=== PATIENT | male | born 1965 | race Caucasian/White ===

== ENCOUNTER 2016-12-24 09:41 | Emergency (ER) | payer OTHER ==
[2016-12-24 10:09] VITALS: BP 146/89
[2016-12-24] MEDS ORDERED: Lidocaine 2% Viscous Solution 15 ML Cup PO ONE (11:42)
--- NOTE | 2016-12-24 18:01 | EDM.PDOC ---
Scribed by Nicole Scherer 12/24/16 [id number] for Mello Young MD ED HPI ENT - General Chief Complaint: ENT Problem Stated Complaint: MOUTH INFECTION [id number] Time Seen by Provider: 12/24/16 11:38 Source of Information: Reports: Patient, RN, RN notes reviewed History Limitations: Reports: No limitations - History of Present Illness INITIAL COMMENTS - FREE TEXT/NARRATIVE: Patient complains of infected/abscess tooth x3 days. Timing/Duration: Reports: Getting worse Severity: severe Location: Reports: mouth Quality: Reports: Ache, Throbbing Improves with: Reports: None Worsens with: Reports: None Associated Symptoms: Reports: no other symptoms - Related Data Allergies/ADRs: Allergies Allergy/AdvReac Type Severity Reaction Status Date / Time No Known Allergies Allergy Verified 12/24/16 10:03 Home Meds: Home Meds Insulin Aspart [NovoLOG] 30 unit SQ TID 10/06/13 [History] Clopidogrel [Plavix] 75 mg PO DAILY 04/19/14 [History] Insulin Detemir [Levemir] 75 units SQ BID 04/19/14 [History] Metoprolol Tartrate [Lopressor] 25 mg PO DAILY 04/19/14 [History] Rosuvastatin [Crestor] 20 mg PO DAILY 04/19/14 [History] Lisinopril [Prinivil] 10 mg PO DAILY 12/05/15 [History] metFORMIN HCl [Metformin HCl] 500 mg PO BID 12/05/15 [History] Acetaminophen [Tylenol] 650 mg PO Q6H PRN 12/24/16 [History] Ibuprofen [Motrin] 800 mg PO Q6H PRN 12/24/16 [History] Past Medical History - Past Health History Medical/Surgical History: Denies Medical/Surgical History HEENT History: Reports: None Cardiovascular History: Reports: CAD, Hypertension, Stents Other Cardiovascular History: 4 way bypass, 2013 Respiratory History: Reports: None Gastrointestinal History: Reports: None Genitourinary History: Reports: None Musculoskeletal History: Reports: Other (see below) Other Musculoskeletal History: shoulder pain since October 26, 2015 Neurological History: Reports: Neuropathy, diabetic Psychiatric History: Reports: None Endocrine/Metabolic History: Reports: Diabetes, type II Hematologic History: Reports: None Immunologic History: Reports: None Oncologic (Cancer) History: Reports: None Dermatologic History: Reports: None - Infectious Disease History Infectious Disease History: Reports: Chicken pox - Past Surgical History Head Surgeries/Procedures: Reports: None Social & Family History - Family History Family Medical History: Noncontributory - Tobacco Use Smoking Status *Q: Current Every Day Smoker Years of Tobacco use: 10 Packs/Tins Daily: 1 Used Tobacco, but Quit: No Second Hand Smoke Exposure: Yes - Caffeine Use Caffeine Use: Reports: None - Alcohol Use Days Per Week of Alcohol Use: 0 Number of Drinks Per Day: 6 Total Drinks Per Week: 0 - Recreational Drug Use Recreational Drug Use: No - Living Situation & Occupation Living situation: Reports: with family Occupation: employed ED ROS ENT - Review of Systems Review Of Systems: ROS reveals no pertinent complaints other than HPI. ED EXAM, ENT - Physical Exam Exam: See Below Exam Limited By: No limitations General Appearance: obese Eye Exam: bilateral eye: normal inspection Ears: normal external exam, normal canal, hearing grossly normal, normal TMs Nose: normal inspection, normal mucousa, no blood Mouth/Throat: Other (tooth #11 decay/adjacent maxillary gums with tenderness and flutuance and drainage. Left maxillary face tender without erythema. ) Head: atraumatic, normocephalic Neck: normal inspection, supple, non-tender, full range of motion Respiratory/Chest: no respiratory distress Cardiovascular: normal peripheral pulses, regular rate, rhythm, no edema, no gallop, no JVD, no murmur, no rub Neurological: alert, oriented, CN II-XII intact, normal cognition, normal gait, normal reflexes, no motor/sensory deficits Psychiatric: normal affect, normal mood Skin: Warm, Dry, Intact, Normal color, No rash Course - Vital Signs Last Recorded V/S: Last Vital Signs Temp 36.2 C 12/24/16 10:05 Pulse 101 H 12/24/16 10:05 Resp 20 12/24/16 10:05 BP 146/89 H 12/24/16 10:05 Pulse Ox 98 12/24/16 10:05 - Orders/Labs/Meds Meds: Medications Discontinued Medications Generic Name Dose Route Start Last Admin Trade Name Freq PRN Reason Stop Dose Admin Lidocaine HCl 15 ml 12/24/16 11:42 12/24/16 11:46 Xylocaine 2% Viscous PO 12/24/16 11:43 15 ml ONETIME ONE Administration Departure - Departure Time of Disposition: 11:42 Disposition: Home, Self-Care 01 Condition: good Clinical Impression: Dental abscess Instructions: Dental Abscess, [id number] Referrals: Shahram Girard MD [Primary Care Provider] - Forms: ED Department Discharge Additional Instructions: Clindamycin 300mg. Amoxicillin 500mg. Viscous lidocaine 2%. [place] 5mg/325mg. Follow up with dentist at first available appointment. I have read and agree with the documentation that has been completed regarding this visit. By signing this record, I attest that the documentation was completed in my physical presence and is an accurate record of the encounter.
== END 2016-12-24 11:54 | disposition home or self-care (01) ==
LOC: DL.ED 09:41
DX: K04.7 Periapical abscess without sinus (principal); I25.810 Atherosclerosis of coronary artery bypass graft(s) without angina pectoris; E11.9 Type 2 diabetes mellitus without complications; I10 Essential (primary) hypertension; Z79.4 Long term (current) use of insulin; Z79.84 Long term (current) use of oral hypoglycemic drugs; Z79.899 Other long term (current) drug therapy; F17.210 Nicotine dependence, cigarettes, uncomplicated
CPT/HCPCS: 99282; A9270

== ENCOUNTER 2017-04-09 20:10 | Emergency (ER) | payer OTHER | END 2017-04-09 20:27 | disposition left against medical advice (07) | LOC: DL.ED 20:10 | DX: Z53.21 Procedure and treatment not carried out due to patient leaving prior to being seen by health care provider (principal) ==

== ENCOUNTER 2017-04-10 05:40 | Emergency (ER) | payer OTHER ==
[2017-04-10] MEDS ORDERED: Ondansetron 4 MG/2 ML SDV IV ONE (05:51)
[2017-04-10] MEDS ORDERED: Sodium Chloride 0.9% 1,000 ML IV ONE ×2 (05:51→07:45)
[2017-04-10] MEDS ORDERED: Morphine 2 MG/ML Syringe IVPUSH ONE (05:51)
--- NOTE | 2017-04-10 05:55 | EDM.PDOC ---
<Stephan Medina - Last Filed: 04/10/17 07:30> ED HPI GENERAL MEDICAL PROBLEM - General Chief Complaint: Abdominal Pain Stated Complaint: STOMACH PAINS Time Seen by Provider: 04/10/17 05:53 Source of Information: Reports: Patient History Limitations: Reports: No Limitations - History of Present Illness INITIAL COMMENTS - FREE TEXT/NARRATIVE: 1 week h/o periumb-epiG pain occurring after eating. gives h.o pancreatitis. - Related Data Allergies Allergy/AdvReac Type Severity Reaction Status Date / Time No Known Allergies Allergy Verified 04/10/17 05:52 Home Meds: Home Meds Insulin Aspart [NovoLOG] 30 unit SQ TID 10/06/13 [History] Clopidogrel [Plavix] 75 mg PO DAILY 04/19/14 [History] Insulin Detemir [Levemir] 75 units SQ BID 04/19/14 [History] Metoprolol Tartrate [Lopressor] 25 mg PO DAILY 04/19/14 [History] Rosuvastatin [Crestor] 20 mg PO DAILY 04/19/14 [History] Lisinopril [Prinivil] 10 mg PO DAILY 12/05/15 [History] metFORMIN HCl [Metformin HCl] 500 mg PO BID 12/05/15 [History] Acetaminophen [Tylenol] 650 mg PO Q6H PRN 12/24/16 [History] Ibuprofen [Motrin] 800 mg PO Q6H PRN 12/24/16 [History] Past Medical History - Past Health History Medical/Surgical History: Denies Medical/Surgical History HEENT History: Reports: None Cardiovascular History: Reports: CAD, Hypertension, Stents Other Cardiovascular History: 4 way bypass, 2013 Respiratory History: Reports: None Gastrointestinal History: Reports: None Genitourinary History: Reports: None Musculoskeletal History: Reports: Other (See Below) Other Musculoskeletal History: shoulder pain since October 26, 2015 Neurological History: Reports: Neuropathy, Diabetic Psychiatric History: Reports: None Endocrine/Metabolic History: Reports: Diabetes, Type II Hematologic History: Reports: None Immunologic History: Reports: None Oncologic (Cancer) History: Reports: None Dermatologic History: Reports: None - Infectious Disease History Infectious Disease History: Reports: Chicken Pox - Past Surgical History Head Surgeries/Procedures: Reports: None Cardiovascular Surgical History: Reports: Coronary Artery Bypass Social & Family History - Family History Family Medical History: Noncontributory - Tobacco Use Smoking Status *Q: Current Every Day Smoker Years of Tobacco use: 30 Packs/Tins Daily: 20 Used Tobacco, but Quit: No Second Hand Smoke Exposure: Yes - Caffeine Use Caffeine Use: Reports: Coffee - Alcohol Use Days Per Week of Alcohol Use: 0 Number of Drinks Per Day: 6 Total Drinks Per Week: 0 - Recreational Drug Use Recreational Drug Use: No - Living Situation & Occupation Living situation: Reports: with Family Occupation: Employed ED ROS GENERAL - Review of Systems Review Of Systems: ROS reveals no pertinent complaints other than HPI. ED EXAM, GI/ABD - Physical Exam Exam: See Below Exam Limited By: No Limitations General Appearance: Alert, WD/WN, Mild Distress, Other (discomfort) Ears: Hearing Grossly Normal Throat/Mouth: Normal Voice, No Airway Compromise Head: Atraumatic Neck: Non-Tender, Full Range of Motion Respiratory/Chest: No Respiratory Distress Cardiovascular: Regular Rate, Rhythm GI/Abdominal: Hyperactive Bowel Sounds, Tenderness, Other (periumb-epiG). No: Distention, Guarding, Rebound, Rigidity Neurological: Alert, Oriented, Normal Cognition, Normal Gait, No Motor/Sensory Deficits Psychiatric: Flat Affect Skin Exam: Warm, Dry Lymphatic: No Adenopathy Course - Vital Signs Last Recorded V/S: Last Vital Signs Temp 95.4 F 04/10/17 05:43 Pulse 94 04/10/17 05:43 Resp 20 04/10/17 05:43 BP 165/80 H 04/10/17 05:43 Pulse Ox 99 04/10/17 05:43 - Orders/Labs/Meds Orders: Active Orders 24 hr Category Date Time Status Blood Glucose Check, Bedside [RC] ONETIME Care 04/10/17 07:29 Active Sodium Chloride 0.9% [Normal Saline] 1,000 ml Med 04/10/17 07:45 Active IV .BOLUS Medication Orders Sodium Chloride (Normal Saline) 1,000 mls @ 999 mls/hr IV .BOLUS ONE Stop: 04/10/17 08:45 Last Admin: 04/10/17 07:48 Dose: 999 mls/hr Labs: Laboratory Tests 04/10/17 04/10/17 04/10/17 Range/Units 05:58 05:58 07:40 WBC 6.8 (5.0-10.0) 10^3/uL RBC 5.55 (4.6-6.2) 10^6/uL Hgb 17.0 (14.0-18.0) g/dL Hct 47.6 (40.0-54.0) % MCV 85.8 (80-100) fL MCH 30.6 (27.0-34.0) pg MCHC 35.7 H (33.0-35.0) g/dL Plt Count 181 (150-450) 10^3/uL Neut % (Auto) 68.7 (42.2-75.2) % Lymph % (Auto) 22.2 (20.5-50.1) % [place] % (Auto) 7.2 (2-8) % Eos % (Auto) 1.6 (1.0-3.0) % Baso % (Auto) 0.3 (0.0-1.0) % Sodium 133 L (135-145) mmol/L Potassium 4.1 (3.6-5.0) mmol/L Chloride 98 L (101-111) mmol/L Carbon Dioxide 23.0 (21.0-31.0) mmol/L Anion Gap 16.1 BUN 12 (7-18) mg/dL Creatinine 0.6 (0.6-1.3) mg/dL Est Cr Clr Drug Dosing 161.67 mL/min Estimated GFR (MDRD) > 60 BUN/Creatinine Ratio 20.00 Glucose 431 H* (74-105) mg/dL POC Glucose 302 H (70-105) mg/dl Calcium 9.2 (8.4-10.2) mg/dl Total Bilirubin 0.6 (0.2-1.0) mg/dL AST 19 (10-42) IU/L ALT 26 (10-60) IU/L Alkaline Phosphatase 90 (42-121) IU/L Total Protein 6.8 (6.7-8.2) g/dl Albumin 4.2 (3.2-5.5) g/dl Globulin 2.6 Albumin/Globulin Ratio 1.62 Amylase 40 (28-100) U/L Lipase 16 L (22-51) U/L Urine Color (YELLOW) Urine Appearance (CLEAR) Urine pH (5.0-9.0) Ur Specific [place] (1.005-1.030) Urine Protein (NEGATIVE) Urine Glucose (UA) (NEGATIVE) Urine Ketones (NEGATIVE) Urine Occult Blood (NEGATIVE) Urine Nitrite (NEGATIVE) Urine Bilirubin (NEGATIVE) Urine Urobilinogen (0.2-1.0) mg/dL Ur Leukocyte Esterase (NEGATIVE) Urine RBC /HPF Urine WBC (0-5/HPF) /HPF Ur Epithelial Cells /HPF Urine Bacteria (0-FEW/HPF) /HPF 04/10/17 Range/Units 07:46 WBC (5.0-10.0) 10^3/uL RBC (4.6-6.2) 10^6/uL Hgb (14.0-18.0) g/dL Hct (40.0-54.0) % MCV (80-100) fL MCH (27.0-34.0) pg MCHC (33.0-35.0) g/dL Plt Count (150-450) 10^3/uL Neut % (Auto) (42.2-75.2) % Lymph % (Auto) (20.5-50.1) % [place] % (Auto) (2-8) % Eos % (Auto) (1.0-3.0) % Baso % (Auto) (0.0-1.0) % Sodium (135-145) mmol/L Potassium (3.6-5.0) mmol/L Chloride (101-111) mmol/L Carbon Dioxide (21.0-31.0) mmol/L Anion Gap BUN (7-18) mg/dL Creatinine (0.6-1.3) mg/dL Est Cr Clr Drug Dosing mL/min Estimated GFR (MDRD) BUN/Creatinine Ratio Glucose (74-105) mg/dL POC Glucose (70-105) mg/dl Calcium (8.4-10.2) mg/dl Total Bilirubin (0.2-1.0) mg/dL AST (10-42) IU/L ALT (10-60) IU/L Alkaline Phosphatase (42-121) IU/L Total Protein (6.7-8.2) g/dl Albumin (3.2-5.5) g/dl Globulin Albumin/Globulin Ratio Amylase (28-100) U/L Lipase (22-51) U/L Urine Color Yellow (YELLOW) Urine Appearance Clear (CLEAR) Urine pH 5.5 (5.0-9.0) Ur Specific [place] 1.010 (1.005-1.030) Urine Protein Negative (NEGATIVE) Urine Glucose (UA) 500 H (NEGATIVE) Urine Ketones Trace H (NEGATIVE) Urine Occult Blood Small H (NEGATIVE) Urine Nitrite Negative (NEGATIVE) Urine Bilirubin Negative (NEGATIVE) Urine Urobilinogen 0.2 (0.2-1.0) mg/dL Ur Leukocyte Esterase Negative (NEGATIVE) Urine RBC 0-5 /HPF Urine WBC Not seen (0-5/HPF) /HPF Ur Epithelial Cells Rare /HPF Urine Bacteria Not seen (0-FEW/HPF) /HPF Meds: Medications Generic Name Dose Route Start Last Admin Trade Name Freq PRN Reason Stop Dose Admin Sodium Chloride 1,000 mls @ 999 mls/hr 04/10/17 07:45 04/10/17 07:48 Normal Saline IV 04/10/17 08:45 999 mls/hr .BOLUS ONE Administration Discontinued Medications Generic Name Dose Route Start Last Admin Trade Name Freq PRN Reason Stop Dose Admin Hydromorphone HCl 1 mg 04/10/17 07:29 04/10/17 07:35 Dilaudid IVPUSH 04/10/17 07:30 1 mg ONETIME ONE Administration Sodium Chloride 1,000 mls @ 500 mls/hr 04/10/17 05:51 04/10/17 05:59 Normal Saline IV 04/10/17 07:50 500 mls/hr .BOLUS ONE Administration Insulin Human Regular 5 unit 04/10/17 06:27 04/10/17 06:33 Humulin R IV 04/10/17 06:28 5 units ONETIME ONE Administration Protocol Iopamidol 100 ml 04/10/17 06:24 Isovue-300 (61%) IVPUSH 04/10/17 06:25 ONETIME ONE Iopamidol 75 ml 04/10/17 06:45 04/10/17 06:48 Isovue-300 (61%) IVPUSH 04/10/17 06:46 75 ml ONETIME ONE Administration Iopamidol 50 ml 04/10/17 06:45 04/10/17 06:48 Isovue-300 (61%) IVPUSH 04/10/17 06:46 50 ml ONETIME ONE Administration Morphine Sulfate 2 mg 04/10/17 05:51 04/10/17 06:00 Morphine IVPUSH 04/10/17 05:52 2 mg ONETIME ONE Administration Ondansetron HCl 4 mg 04/10/17 05:51 04/10/17 06:00 Zofran IV 04/10/17 05:52 4 mg ONETIME ONE Administration Departure - Departure Disposition: Home, Self-Care 01 Clinical Impression: Peptic ulcer Hydronephrosis Qualifiers: Hydronephrosis type: unspecified Qualified Code(s): N13.30 - Unspecified hydronephrosis - Discharge Information Instructions: Peptic Ulcer, [id number], Abdominal Pain, Adult, [id number] Forms: ED Department Discharge Additional Instructions: Take the antacid (omeprazole) daily. Follow up in 1-2 weeks at the [facility] to obtain an appointment with the grocery bagger (stomach doctor) to evaluate you for an ulcer. Return for any worsening symptoms. try to not eat anything that will aggravate your symptoms. Try not to take ibuprofen as it may increase risk of bleeding. Take Tylenol for pain instead. If you must take Ibuprofen, limit it to one tablet daily. <Quinton Patricia - Last Filed: 04/10/17 08:33> Course - Radiology Interpretation Free Text/Narrative:: no acute findings on the CT ab/pelvis. Mild hydronephrosis - Re-Assessments/Exams Free Text/Narrative Re-Assessment/Exam: 04/10/17 08:12 Pt states that he feels better. States that he was having pain to his abdomen after eating. Will refer to GI specialist at [facility] for further workup to r/o gastric ulcers. States that he has noticed some darkening of color in his stools, denies blood. Will start omeprazole 20 mg daily and have him follow up in clinic in 1-2 weeks. 04/10/17 08:21 Departure - Departure Time of Disposition: 08:22 Condition: Good
[2017-04-10 06:24] LABS: CHLORIDE,CL 98 mmol/L (101-111); SODIUM,NA 133 mmol/L (135-145)
[2017-04-10] MEDS ORDERED: Iopamidol 612 MG/ML 100 ML Bottle IVPUSH ONE (06:24)
[2017-04-10] MEDS ORDERED: Insulin Regular, Human 100 Units/ML 3 ML Vial IV ONE (06:27)
[2017-04-10] MEDS ORDERED: Iopamidol 612 MG/ML 75 ML Bottle IVPUSH ONE (06:45)
[2017-04-10] MEDS ORDERED: Iopamidol 612 MG/ML 50 ML SDV IVPUSH ONE (06:45)
[2017-04-10] MEDS ORDERED: HYDROmorphone 1 MG/ML Syringe IVPUSH ONE (07:29)
[2017-04-10 08:47] VITALS: BP 142/82
== END 2017-04-10 08:45 | disposition home or self-care (01) ==
LOC: DL.ED 05:40
DX: K27.9 Peptic ulcer, site unspecified, unspecified as acute or chronic, without hemorrhage or perforation (principal); K40.20 Bilateral inguinal hernia, without obstruction or gangrene, not specified as recurrent; N13.30 Unspecified hydronephrosis; K57.30 Diverticulosis of large intestine without perforation or abscess without bleeding; E11.40 Type 2 diabetes mellitus with diabetic neuropathy, unspecified; Z79.4 Long term (current) use of insulin; Z79.84 Long term (current) use of oral hypoglycemic drugs; I25.810 Atherosclerosis of coronary artery bypass graft(s) without angina pectoris; I10 Essential (primary) hypertension; Z95.5 Presence of coronary angioplasty implant and graft; Z79.02 Long term (current) use of antithrombotics/antiplatelets; Z79.899 Other long term (current) drug therapy; F17.210 Nicotine dependence, cigarettes, uncomplicated
CPT/HCPCS: 36415; 74177; 80053; 81001; 82150; 82962; 83690; 85025; 96361; 96374; 96375; 99284; J1170; J2270; J2405; J7030; Q9967

== ENCOUNTER 2017-04-12 08:27 | Emergency (ER) | payer OTHER ==
[2017-04-12] MEDS ORDERED: Sodium Chloride 0.9% 1,000 ML IV ONE (09:06)
[2017-04-12] MEDS ORDERED: Ketorolac 30 MG/ML SDV IVPUSH ONE (09:06)
--- NOTE | 2017-04-12 09:10 | EDM.PDOC ---
ED HPI GENERAL MEDICAL PROBLEM - General Chief Complaint: Abdominal Pain Stated Complaint: LOWER ABDOMEN RT SIDE Time Seen by Provider: 04/12/17 09:07 Source of Information: Reports: Patient History Limitations: Reports: No Limitations - History of Present Illness INITIAL COMMENTS - FREE TEXT/NARRATIVE: Pt states that he was having some pain to his RLQ that radiates to the rigth flank starting a few days ago. Pt was previously seen 2 days ago for epigastric pain after eating. States that he has had diarrhea x 3 this morning. Denies n/ v. No other complaints. Onset: Unknown/Unsure Duration: Getting Worse, Waxing/Waning Location: Reports: Abdomen Quality: Reports: Ache, Sharp Severity: Moderate Improves with: Reports: None Worsens with: Reports: None Treatments OUTPATIENT SERVICES DIRECTOR: Reports: NSAIDS Right Lower Abdomen Pain Score (Numeric/FACES): 8 - Related Data Allergies Allergy/AdvReac Type Severity Reaction Status Date / Time No Known Allergies Allergy Verified 04/12/17 08:34 Home Meds: Home Meds Insulin Aspart [NovoLOG] 30 unit SQ TID 10/06/13 [History] Clopidogrel [Plavix] 75 mg PO DAILY 04/19/14 [History] Insulin Detemir [Levemir] 75 units SQ BID 04/19/14 [History] Metoprolol Tartrate [Lopressor] 25 mg PO DAILY 04/19/14 [History] Rosuvastatin [Crestor] 20 mg PO DAILY 04/19/14 [History] Lisinopril [Prinivil] 10 mg PO DAILY 12/05/15 [History] metFORMIN HCl [Metformin HCl] 500 mg PO BID 12/05/15 [History] Acetaminophen [Tylenol] 650 mg PO Q6H PRN 12/24/16 [History] Ibuprofen [Motrin] 800 mg PO Q6H PRN 12/24/16 [History] Omeprazole 20 mg PO DAILY 04/12/17 [History] Past Medical History - Past Health History Medical/Surgical History: Denies Medical/Surgical History HEENT History: Reports: None Cardiovascular History: Reports: CAD, Hypertension, Stents Other Cardiovascular History: 4 way bypass, 2013 Respiratory History: Reports: Sleep Apnea Gastrointestinal History: Reports: Pancreatitis Genitourinary History: Reports: None Musculoskeletal History: Reports: Other (See Below) Other Musculoskeletal History: shoulder pain since October 26, 2015 Neurological History: Reports: Neuropathy, Diabetic Psychiatric History: Reports: None Endocrine/Metabolic History: Reports: Diabetes, Type II Hematologic History: Reports: None Immunologic History: Reports: None Oncologic (Cancer) History: Reports: None Dermatologic History: Reports: None - Infectious Disease History Infectious Disease History: Reports: Chicken Pox - Past Surgical History Head Surgeries/Procedures: Reports: None Cardiovascular Surgical History: Reports: Coronary Artery Bypass GI Surgical History: Reports: Appendectomy Social & Family History - Family History Family Medical History: Noncontributory - Tobacco Use Smoking Status *Q: Current Every Day Smoker Years of Tobacco use: 20 Packs/Tins Daily: 1 Used Tobacco, but Quit: No Second Hand Smoke Exposure: Yes - Caffeine Use Caffeine Use: Reports: None - Alcohol Use Days Per Week of Alcohol Use: 0 Number of Drinks Per Day: 6 Total Drinks Per Week: 0 - Recreational Drug Use Recreational Drug Use: No - Living Situation & Occupation Living situation: Reports: with Family Occupation: Employed ED ROS GENERAL - Review of Systems Review Of Systems: ROS reveals no pertinent complaints other than HPI. ED EXAM, GI/ABD - Physical Exam Exam: See Below Exam Limited By: No Limitations General Appearance: Alert, WD/WN, No Apparent Distress Respiratory/Chest: No Respiratory Distress, Lungs Clear, Normal Breath Sounds, No Accessory Muscle Use, Chest Non-Tender Cardiovascular: Normal Peripheral Pulses, Regular Rate, Rhythm, No Edema, No Gallop, No JVD, No Murmur, No Rub GI/Abdominal: Normal Bowel Sounds, Soft, No Organomegaly, No Distention, No Abnormal Bruit, No Mass, Tenderness (RLQ), Rebound Rectal (Males) Exam: Normal Rectal Tone, Heme - Stool, Tenderness, Other ( erythema perirectally ) Neurological: Alert, Oriented, CN II-XII Intact, Normal Cognition, Normal Gait, Normal Reflexes, No Motor/Sensory Deficits Course - Vital Signs Last Recorded V/S: Last Vital Signs Temp 96.4 F 04/12/17 08:36 Pulse 97 04/12/17 08:36 Resp 18 04/12/17 08:36 BP 146/83 H 04/12/17 09:45 Pulse Ox 98 04/12/17 08:36 - Orders/Labs/Meds Labs: Laboratory Tests 04/12/17 04/12/17 04/12/17 Range/Units 09:04 09:14 09:14 WBC 8.4 (5.0-10.0) 10^3/uL RBC 5.39 (4.6-6.2) 10^6/uL Hgb 16.4 (14.0-18.0) g/dL Hct 46.2 (40.0-54.0) % MCV 85.7 (80-100) fL MCH 30.4 (27.0-34.0) pg MCHC 35.5 H (33.0-35.0) g/dL Plt Count 190 (150-450) 10^3/uL Neut % (Auto) 72.3 (42.2-75.2) % Lymph % (Auto) 19.3 L (20.5-50.1) % [place] % (Auto) 6.8 (2-8) % Eos % (Auto) 1.0 (1.0-3.0) % Baso % (Auto) 0.6 (0.0-1.0) % Sodium 133 L (135-145) mmol/L Potassium 3.9 (3.6-5.0) mmol/L Chloride 98 L (101-111) mmol/L Carbon Dioxide 23.0 (21.0-31.0) mmol/L Anion Gap 15.9 BUN 12 (7-18) mg/dL Creatinine 0.7 (0.6-1.3) mg/dL Est Cr Clr Drug Dosing 142.68 mL/min Estimated GFR (MDRD) > 60 Glucose 377 H (74-105) mg/dL Calcium 9.2 (8.4-10.2) mg/dl Amylase 27 L (28-100) U/L Lipase 15 L (22-51) U/L Urine Color Yellow (YELLOW) Urine Appearance Clear (CLEAR) Urine pH 5.5 (5.0-9.0) Ur Specific [place] 1.020 (1.005-1.030) Urine Protein 30 H (NEGATIVE) Urine Glucose (UA) 500 H (NEGATIVE) Urine Ketones 15 H (NEGATIVE) Urine Occult Blood Small H (NEGATIVE) Urine Nitrite Negative (NEGATIVE) Urine Bilirubin Negative (NEGATIVE) Urine Urobilinogen 0.2 (0.2-1.0) mg/dL Ur Leukocyte Esterase Negative (NEGATIVE) Urine RBC 0-5 /HPF Urine WBC 0-5 (0-5/HPF) /HPF Ur Epithelial Cells Rare /HPF Urine Bacteria Rare (0-FEW/HPF) /HPF Urine Mucus Few H /LPF Urinalysis Comment Meds: Medications Discontinued Medications Generic Name Dose Route Start Last Admin Trade Name Jake PRN Reason Stop Dose Admin Dicyclomine HCl 20 mg 04/12/17 10:00 04/12/17 10:13 Bentyl IM 04/12/17 10:01 20 mg ONETIME ONE Administration Hydromorphone HCl 1 mg 04/12/17 09:59 04/12/17 10:13 Dilaudid IVPUSH 04/12/17 10:00 1 mg ONETIME ONE Administration Sodium Chloride 1,000 mls @ 999 mls/hr 04/12/17 09:06 04/12/17 09:18 Normal Saline IV 04/12/17 10:06 999 mls/hr .BOLUS ONE Administration Insulin Human Regular 6 unit 04/12/17 09:59 04/12/17 10:12 Humulin R SUBCUT 04/12/17 10:00 6 units ONETIME ONE Administration Protocol Ketorolac Tromethamine 30 mg 04/12/17 09:06 04/12/17 09:18 Toradol IVPUSH 04/12/17 09:07 30 mg ONETIME ONE Administration Ondansetron HCl 4 mg 04/12/17 10:00 04/12/17 10:13 Zofran IV 04/12/17 10:01 4 mg ONETIME ONE Administration - Re-Assessments/Exams Free Text/Narrative Re-Assessment/Exam: 04/12/17 10:39 Pt states that he feels much better. is sitting on the side of the bed, more comfortable in appearance. Encouraged to rest the next few days. Will dc the motrin until visit with GI scheduled for monday. Will give ultram for pain with bentyl for spasms of diarrhea. Departure - Departure Time of Disposition: 10:44 Disposition: Home, Self-Care 01 Condition: Good Clinical Impression: Diarrhea Qualifiers: Diarrhea type: unspecified type Qualified Code(s): R19.7 - Diarrhea, unspecified - Discharge Information Instructions: Diarrhea, Adult, Abdominal Pain, Adult, [id number], Food Choices to Help Relieve Diarrhea, Adult Forms: ED Department Discharge, Return to Work/School Form Additional Instructions: Stop taking the motrin until your appointment on Monday with the stomach doctors. Take bentyl for cramping. Get rest the next few days.Drink plenty of fluids and eat bland foods or the B.R.A.T ( bananas, rice, apples , toast ) diet. Return for worsening symptoms.
[2017-04-12 09:45] VITALS: BP 146/83
[2017-04-12 09:50] LABS: CHLORIDE,CL 98 mmol/L (101-111); SODIUM,NA 133 mmol/L (135-145)
[2017-04-12] MEDS ORDERED: Insulin Regular, Human 100 Units/ML 3 ML Vial SUBCUT ONE (09:59)
[2017-04-12] MEDS ORDERED: HYDROmorphone 1 MG/ML Syringe IVPUSH ONE (09:59)
[2017-04-12] MEDS ORDERED: Dicyclomine 20 MG/2 ML SDV IM ONE (10:00)
[2017-04-12] MEDS ORDERED: Ondansetron 4 MG/2 ML SDV IV ONE (10:00)
== END 2017-04-12 11:04 | disposition home or self-care (01) ==
LOC: DL.ED 08:27
DX: R19.7 Diarrhea, unspecified (principal); I25.10 Atherosclerotic heart disease of native coronary artery without angina pectoris; I10 Essential (primary) hypertension; E11.40 Type 2 diabetes mellitus with diabetic neuropathy, unspecified; F17.210 Nicotine dependence, cigarettes, uncomplicated; Z79.4 Long term (current) use of insulin; Z79.899 Other long term (current) drug therapy; Z90.49 Acquired absence of other specified parts of digestive tract; Z95.1 Presence of aortocoronary bypass graft
CPT/HCPCS: 36415; 80048; 81001; 82150; 82272; 83690; 85025; 96372; 96374; 96375; 99283; J0500; J1170; J1815; J1885; J2405; J7030

== ENCOUNTER 2017-05-09 22:50 | Emergency (ER) | payer OTHER ==
[2017-05-09 22:56] VITALS: BP 154/92
--- NOTE | 2017-05-09 23:43 | EDM.PDOC ---
ED HPI GENERAL MEDICAL PROBLEM - General Chief Complaint: ENT Problem Stated Complaint: INFECTED TOOTH Time Seen by Provider: 05/09/17 23:00 Source of Information: Reports: Patient History Limitations: Reports: No Limitations - History of Present Illness INITIAL COMMENTS - FREE TEXT/NARRATIVE: C/O left upper toothache for past 2 days, Reports attempting to contact dentist for antibiotic, but would not give abx unless scheduled to be seen. Did not schedule appointment as doesnt have dental insurance. Denied fever or chills. Upper outer gum swollen, Hydrocodone not helping. has not tried anything else. Left Upper Gums Pain Score (Numeric/FACES): 8 - Related Data Allergies Allergy/AdvReac Type Severity Reaction Status Date / Time No Known Allergies Allergy Verified 05/09/17 22:56 Home Meds: Home Meds Insulin Aspart [NovoLOG] 30 unit SQ TID 10/06/13 [History] Clopidogrel [Plavix] 75 mg PO DAILY 04/19/14 [History] Insulin Detemir [Levemir] 75 units SQ BID 04/19/14 [History] Metoprolol Tartrate [Lopressor] 25 mg PO DAILY 04/19/14 [History] Rosuvastatin [Crestor] 20 mg PO DAILY 04/19/14 [History] Lisinopril [Prinivil] 10 mg PO DAILY 12/05/15 [History] metFORMIN HCl [Metformin HCl] 500 mg PO BID 12/05/15 [History] Acetaminophen [Tylenol] 650 mg PO Q6H PRN 12/24/16 [History] Omeprazole 20 mg PO DAILY 04/12/17 [History] Past Medical History - Past Health History Medical/Surgical History: Denies Medical/Surgical History HEENT History: Reports: None Cardiovascular History: Reports: CAD, Hypertension Other Cardiovascular History: 4 way bypass, 2013 Respiratory History: Reports: Sleep Apnea Gastrointestinal History: Reports: Pancreatitis Genitourinary History: Reports: None Musculoskeletal History: Reports: Other (See Below) Other Musculoskeletal History: shoulder pain since October 26, 2015 Neurological History: Reports: Neuropathy, Diabetic Psychiatric History: Reports: None Endocrine/Metabolic History: Reports: Diabetes, Type II Hematologic History: Reports: None Immunologic History: Reports: None Oncologic (Cancer) History: Reports: None Dermatologic History: Reports: None - Infectious Disease History Infectious Disease History: Reports: Chicken Pox - Past Surgical History Head Surgeries/Procedures: Reports: None Cardiovascular Surgical History: Reports: Coronary Artery Bypass GI Surgical History: Reports: Appendectomy Social & Family History - Family History Family Medical History: Noncontributory - Tobacco Use Smoking Status *Q: Current Every Day Smoker Years of Tobacco use: 30 Packs/Tins Daily: 1 Used Tobacco, but Quit: No Second Hand Smoke Exposure: Yes - Caffeine Use Caffeine Use: Reports: None - Alcohol Use Days Per Week of Alcohol Use: 0 Number of Drinks Per Day: 6 Total Drinks Per Week: 0 - Recreational Drug Use Recreational Drug Use: No - Living Situation & Occupation Living situation: Reports: with Family Occupation: Employed ED ROS ENT - Review of Systems Review Of Systems: ROS reveals no pertinent complaints other than HPI. ED EXAM, ENT - Physical Exam Exam: See Below Exam Limited By: No Limitations General Appearance: Alert, Mild Distress Eye Exam: Bilateral Eye: EOMI Ears: Normal External Exam, Normal TMs Nose: Normal Inspection Mouth/Throat: Dental Abcess, Dental Pain, Dental Tenderness (left upper 2nd molar, posterior medial decay. generalized poor dentation), Gum Swelling Head: Atraumatic, Normocephalic Neck: Normal Inspection, Supple, Lymphadenopathy (L) (mildpre auricular) Respiratory/Chest: No Respiratory Distress, Lungs Clear Cardiovascular: Regular Rate, Rhythm Neurological: Alert, Oriented, Normal Cognition Psychiatric: Normal Affect Skin: Warm, Dry, Intact, Normal Color Course - Vital Signs Last Recorded V/S: Last Vital Signs Temp 98.1 F 05/09/17 22:53 Pulse 95 05/09/17 22:53 Resp 18 05/09/17 22:53 BP 154/92 H 05/09/17 22:53 Pulse Ox 98 05/09/17 22:53 - Orders/Labs/Meds Meds: Medications Discontinued Medications Generic Name Dose Route Start Last Admin Trade Name Freq PRN Reason Stop Dose Admin Amoxicillin Confirm 05/09/17 23:45 05/09/17 23:54 Amoxil Administered 05/09/17 23:46 Not Given Dose 500 mg .ROUTE .STK-MED ONE Oxycodone/Acetaminophen Confirm 05/09/17 23:44 05/09/17 23:54 Percocet 325-5 Mg Administered 05/09/17 23:45 Not Given Dose 1 tab .ROUTE .STK-MED ONE Departure - Departure Time of Disposition: 23:39 Disposition: Home, Self-Care 01 Condition: Fair Clinical Impression: Pain, dental, Dental caries, Dental abscess - Discharge Information Instructions: Dental Abscess, [id number] Referrals: Shahram Girard MD [Primary Care Provider] - Forms: ED Department Discharge Additional Instructions: Follow up with dentist amoxicillin 500mg one three times daily for one week percocet 5/325 one tablet at bed tonight then resume hydrocodone, may use ibuprofen 600mg no greater than every 8 hours as needed for breakthrough pain, take with food, anbesol as needed
[2017-05-09] MEDS ORDERED: Acetaminophen/oxyCODONE 325-5 MG Tab ONE (23:44)
[2017-05-09] MEDS ORDERED: Acetaminophen/oxyCODONE 325-5 MG Tab PO ONE (23:45)
[2017-05-09] MEDS ORDERED: Amoxicillin 500 MG Cap ONE (23:45)
[2017-05-09] MEDS ORDERED: Amoxicillin 500 MG Cap PO ONE (23:45)
== END 2017-05-09 23:50 | disposition home or self-care (01) ==
LOC: DL.ED 22:50
DX: K04.7 Periapical abscess without sinus (principal); K02.9 Dental caries, unspecified; I25.10 Atherosclerotic heart disease of native coronary artery without angina pectoris; I10 Essential (primary) hypertension; E11.40 Type 2 diabetes mellitus with diabetic neuropathy, unspecified; Z90.49 Acquired absence of other specified parts of digestive tract; Z79.4 Long term (current) use of insulin; Z79.899 Other long term (current) drug therapy; F17.210 Nicotine dependence, cigarettes, uncomplicated; Z95.1 Presence of aortocoronary bypass graft
CPT/HCPCS: 99282; A9270

== ENCOUNTER 2017-05-12 05:21 | Day surgery (SDC) | payer OTHER ==
[2017-05-12] MEDS ORDERED: Dextrose 5%-0.45% NaCl 1,000 ML IV SCH (06:00)
[2017-05-12] MEDS ORDERED: Sodium Chloride 0.9% 10 ML Syringe FLUSH PRN (06:00)
[2017-05-12] MEDS ORDERED: fentaNYL 100 MCG/2 ML SDV ONE (06:13)
[2017-05-12] MEDS ORDERED: Midazolam 1 MG/ML 2 ML SDV ONE (06:13)
[2017-05-12] MEDS ORDERED: fentaNYL 100 MCG/2 ML SDV IV ONE ×3 (06:31→12:08)
[2017-05-12] MEDS ORDERED: Midazolam 1 MG/ML 2 ML SDV IV ONE ×3 (06:32→12:08)
--- NOTE | 2017-05-12 07:06 | OR ---
DATE: 05/12/2017 PROCEDURES: Esophagogastroduodenoscopy and multiple pinch biopsies. INSTRUMENT USED: GIF-H180 Olympus video panendoscope. PREMEDICATIONS: No oral topical anesthesia used. Fentanyl 100 mcg intravenous, Versed 2 mg intravenous. The procedure was done under pulse oximetry, BP recording, and cardiac catheterization technician. INDICATION: The patient with persistent upper abdominal pain unexplained and not responsive to medical measures, on PPI. Esophagogastroduodenoscopy is performed for detection of any active erosive lesions, Lin esophagus and/or malignancy also under consideration, H. pylori status to be determined, endoscopic hemostasis therapy if needed. DESCRIPTION OF PROCEDURE: The scope was passed with ease. Adequate visualization of the esophagus was made from proximal to distal areas. No upper esophageal lesions identified. No distal esophageal stricture. No uphill or downhill esophageal varices. No Cyndie-Killian tear. No evidence of erosive esophagitis by [place] criteria. No esophageal polyp or tumor mass identified. Z-line was seen at around 40 cm distal to the oral verge, configuration consistent with grade 1 by ZAP classification. No proximal gastric varices noted. Gastric fundus examination by retroflexion showed no polypoid lesions. No gastric ulcer, malignant mass, or vascular ectasia identified. Duodenal bulb showed no ulcer. Visualized second part of the duodenum was unremarkable. Multiple pinch biopsies were taken from the gastric antrum and proximal body and sent for PyloriTek test for H. pylori, and if negative in an hour, the tissue is to be sent for histopathology. No bleeding was noted from any of the visualized areas at the completion of examination. Photographs were taken of the duodenal bulb, gastric antrum, fundus, and distal esophagus. IMPRESSION: Normal study. The patient tolerated the procedure well. [facility] /[id number]
[2017-05-12 09:15] VITALS: BP 134/81
== END 2017-05-12 08:43 | disposition home or self-care (01) ==
LOC: DL.ENDO 05:21
PROVIDERS: ATTEND Internal Medicine Gastroenterology
DX: R10.10 Upper abdominal pain, unspecified (principal); I25.10 Atherosclerotic heart disease of native coronary artery without angina pectoris; E11.9 Type 2 diabetes mellitus without complications; E78.5 Hyperlipidemia, unspecified; M96.1 Postlaminectomy syndrome, not elsewhere classified; F17.210 Nicotine dependence, cigarettes, uncomplicated; Z90.49 Acquired absence of other specified parts of digestive tract; G89.4 Chronic pain syndrome; K43.9 Ventral hernia without obstruction or gangrene; E66.09 Other obesity due to excess calories; Z98.890 Other specified postprocedural states; Z95.1 Presence of aortocoronary bypass graft; Z79.02 Long term (current) use of antithrombotics/antiplatelets; Z79.82 Long term (current) use of aspirin; Z79.4 Long term (current) use of insulin; Z79.899 Other long term (current) drug therapy
CPT/HCPCS: 43239; 87077; J2250; J3010; J7042

== ENCOUNTER 2017-08-11 05:57 | Day surgery (SDC) | payer OTHER ==
[~2017-08-11 05:57] MED LIST: Midazolam 1 MG/ML 2 ML SDV ONE; fentaNYL 100 MCG/2 ML SDV ONE
[2017-08-11] MEDS ORDERED: fentaNYL 100 MCG/2 ML SDV IV ONE ×3 (05:58→07:00)
[2017-08-11] MEDS ORDERED: Midazolam 1 MG/ML 2 ML SDV IV ONE ×7 (05:58→07:06)
[2017-08-11] MEDS ORDERED: Dextrose 5%-0.45% NaCl 1,000 ML IV SCH (06:00)
[2017-08-11] MEDS ORDERED: Sodium Chloride 0.9% 10 ML Syringe FLUSH PRN (06:00)
--- NOTE | 2017-08-11 07:39 | OR ---
DATE: 08/11/2017 PROCEDURE: Total colonoscopy. INSTRUMENT USED: CF-H180AL Olympus video colonoscope. PREMEDICATIONS: Fentanyl 100 mcg intravenous, Versed 4 mg intravenous. Nasal O2 cannula. The procedure was done under pulse oximetry, BP recording, and production shift supervisor. INDICATION: The patient with persistent right-sided lower pain, unexplained, not responsive to medical measures. Colonoscopic examination is done for detection of any polypoid lesions and removal, endoscopic hemostasis therapy if needed. DESCRIPTION OF PROCEDURE: Initial rectal exam was unremarkable. Rigid anoscopy was normal. The colonoscope was passed with ease to the ileocecal area, photographs were taken of the normal-appearing cecum, identified by landmarks of appendiceal orifice and double-bulged ileocecal folds. No bleeding was noted from any of the visualized areas at the commencement of the examination. No stricture. No vascular ectasia. No large isolated ulcerations seen. No evidence of diffuse inflammatory bowel disease in the form of friability, contact bleeding, or ulcerations. No polyp or tumor mass identified. Probing the proximal sides of folds and flexures, using adequate distention and clearing of the stool material, withdrawal of the scope was made. Cecum to rectum time over 6 minutes. There was considerable amount of fecal material that had to be aspirated. No bleeding was noted from any of the visualized areas at the completion of examination. IMPRESSION: Normal study. The patient tolerated the procedure well. [facility] /[id number]
[2017-08-11 11:57] VITALS: BP 135/85
== END 2017-08-11 09:20 | disposition home or self-care (01) ==
LOC: DL.ENDO 05:57
PROVIDERS: ATTEND Internal Medicine Gastroenterology
DX: R10.31 Right lower quadrant pain (principal); G89.4 Chronic pain syndrome; I25.10 Atherosclerotic heart disease of native coronary artery without angina pectoris; E66.9 Obesity, unspecified; I10 Essential (primary) hypertension; E11.40 Type 2 diabetes mellitus with diabetic neuropathy, unspecified; G47.30 Sleep apnea, unspecified; Z95.1 Presence of aortocoronary bypass graft; Z98.890 Other specified postprocedural states; Z90.49 Acquired absence of other specified parts of digestive tract
CPT/HCPCS: 45378; J2250; J3010; J7042

== ENCOUNTER 2018-10-26 07:13 | Emergency (ER) | payer OTHER ==
[2018-10-26] MEDS ORDERED: diphenhydrAMINE 50 MG/ML SDV IVPUSH ONE (07:40)
[2018-10-26 07:52] VITALS: BP 122/77
[2018-10-26] MEDS ORDERED: methylPREDNISolone Sodium Succinate 125 MG/2 ML SDV IVPUSH ONE (07:54)
[2018-10-26 08:12] LABS: ANION GAP 16.9; CHLORIDE,CL 94 mmol/L (101-111); SODIUM,NA 130 mmol/L (135-145)
[2018-10-26] MEDS ORDERED: Insulin Regular, Human 100 Units/ML 3 ML Vial SUBCUT ONE (08:15)
--- NOTE | 2018-10-26 08:17 | EDM.PDOC ---
ED HPI GENERAL MEDICAL PROBLEM - General Chief Complaint: Allergic Reaction Stated Complaint: REACTION TO MEDS Time Seen by Provider: 10/26/18 07:20 Source of Information: Reports: Patient, Family, RN, RN Notes Reviewed History Limitations: Reports: No Limitations - History of Present Illness INITIAL COMMENTS - FREE TEXT/NARRATIVE: Pt presents to ER with c/o generalized hives/rash and itching. He states that he has been on Ancef IV x4 weeks, and nothing else is new. Denies any cough, wheezing, shortness of breath, facial swelling, swelling of lips, tongue, mouth , or throat. Onset: Today Duration: Constant Quality: Reports: Other (Denies pain) Severity: Moderate Improves with: Reports: None Worsens with: Reports: None Associated Symptoms: Reports: No Other Symptoms - Related Data Allergies Allergy/AdvReac Type Severity Reaction Status Date / Time No Known Allergies Allergy Verified 09/01/18 02:07 Home Meds: Home Meds Insulin Aspart [NovoLOG] 40 unit SQ TID 10/06/13 [History] Clopidogrel [Plavix] 75 mg PO DAILY 04/19/14 [History] Insulin Detemir [Levemir] 80 units SQ BID 04/19/14 [History] Metoprolol Tartrate [Lopressor] 25 mg PO DAILY 04/19/14 [History] Rosuvastatin [Crestor] 40 mg PO DAILY 04/19/14 [History] Lisinopril [Prinivil] 10 mg PO DAILY 12/05/15 [History] metFORMIN HCl [Metformin HCl] 500 mg PO BID 12/05/15 [History] Gabapentin [Neurontin] 1 tab PO TID 05/11/17 [History] buPROPion [Wellbutrin SR] 1 tab PO DAILY 05/11/17 [History] Aspirin [Ecotrin] 81 mg PO DAILY 08/10/17 [History] Diclofenac Sodium [Voltaren] 75 mg PO BIDMEALS 10/26/18 [History] ceFAZolin Sodium In 0.9 % NaCl [Cefazolin-0.9% NaCl 2 G/10 ml] 2 gm IV Q8HR 09/03 [History] Past Medical History - Past Health History Medical/Surgical History: Denies Medical/Surgical History HEENT History: Reports: None Cardiovascular History: Reports: Bypass, CAD, Hypertension Other Cardiovascular History: 4 way bypass, 2013 Respiratory History: Reports: COPD, Sleep Apnea Gastrointestinal History: Reports: Pancreatitis Other Gastrointestinal History: UMBILICAL HERNIA Genitourinary History: Reports: Chronic Renal Insuffiency Musculoskeletal History: Reports: Other (See Below) Other Musculoskeletal History: shoulder pain since October 26, 2015 Neurological History: Reports: Neuropathy, Diabetic Psychiatric History: Reports: None Endocrine/Metabolic History: Reports: Diabetes, Type II, Obesity/BMI 30+ Hematologic History: Reports: None Immunologic History: Reports: None Oncologic (Cancer) History: Reports: None Dermatologic History: Reports: None - Infectious Disease History Infectious Disease History: Reports: Chicken Pox - Past Surgical History Head Surgeries/Procedures: Reports: None HEENT Surgical History: Reports: None Cardiovascular Surgical History: Reports: Coronary Artery Bypass Respiratory Surgical History: Reports: None GI Surgical History: Reports: Appendectomy, Hernia Repair/Other Male Surgical History: Reports: None Endocrine Surgical History: Reports: None Neurological Surgical History: Reports: None Oncologic Surgical History: Reports: None Dermatological Surgical History: Reports: None Social & Family History - Family History Family Medical History: Noncontributory - Caffeine Use Caffeine Use: Reports: Coffee - Living Situation & Occupation Living situation: Reports: with Family Occupation: Employed ED ROS ALLERGIC REACTION - Review of Systems Review Of Systems: ROS reveals no pertinent complaints other than HPI. ED EXAM GENERAL NO PERIP PULSE - Physical Exam Exam: See Below Exam Limited By: No Limitations General Appearance: Alert, WD/WN, No Apparent Distress, Obese Nose: Normal Inspection Throat/Mouth: Normal Inspection, Normal Lips, Normal Oropharynx, Normal Voice, No Airway Compromise Head: Atraumatic, Normocephalic Neck: Normal Inspection, Supple, Non-Tender, Full Range of Motion Respiratory/Chest: No Respiratory Distress, Lungs Clear, Normal Breath Sounds, No Accessory Muscle Use, Chest Non-Tender Cardiovascular: Regular Rate, Rhythm Extremities: Normal Range of Motion, Non-Tender, Normal Capillary Refill Neurological: Alert, Oriented, CN II-XII Intact, Normal Cognition, Normal Gait, No Motor/Sensory Deficits Psychiatric: Normal Mood Skin Exam: Warm, Dry, Intact, Rash (Generalized erythema without welts) Course - Vital Signs Last Recorded V/S: Last Vital Signs Temp 36.5 C 10/26/18 07:30 Pulse 90 10/26/18 07:30 Resp 18 10/26/18 07:30 BP 122/77 10/26/18 07:30 Pulse Ox 99 10/26/18 07:30 - Orders/Labs/Meds Orders: Active Orders 24 hr Category Date Time Status Blood Glucose Check, Bedside [RC] ONETIME Care 10/26/18 08:16 Active Labs: Laboratory Tests 10/26/18 10/26/18 Range/Units 07:42 07:42 WBC 8.7 (5.0-10.0) 10^3/uL RBC 5.44 (4.6-6.2) 10^6/uL Hgb 16.4 (14.0-18.0) g/dL Hct 45.8 (40.0-54.0) % MCV 84.2 (80-100) fL MCH 30.1 (27.0-34.0) pg MCHC 35.8 H (33.0-35.0) g/dL Plt Count 168 (150-450) 10^3/uL Sodium 130 L (135-145) mmol/L Potassium 3.9 (3.6-5.0) mmol/L Chloride 94 L (101-111) mmol/L Carbon Dioxide 23.0 (21.0-31.0) mmol/L Anion Gap 16.9 BUN 16 (7-18) mg/dL Creatinine 0.8 (0.6-1.3) mg/dL Est Cr Clr Drug Dosing TNP Estimated GFR (MDRD) > 60 BUN/Creatinine Ratio 20.00 Glucose 453 H* (74-105) mg/dL Calcium 8.7 (8.4-10.2) mg/dl Total Bilirubin 0.9 (0.2-1.0) mg/dL AST 18 (10-42) IU/L ALT 15 (10-60) IU/L Alkaline Phosphatase 92 (42-121) IU/L Total Protein 6.7 (6.7-8.2) g/dl Albumin 3.9 (3.2-5.5) g/dl Globulin 2.8 Albumin/Globulin Ratio 1.39 Meds: Medications Discontinued Medications Generic Name Dose Route Start Last Admin Trade Name Freq PRN Reason Stop Dose Admin Diphenhydramine HCl 50 mg 10/26/18 07:40 10/26/18 07:55 Benadryl IVPUSH 10/26/18 07:41 50 mg ONETIME ONE Administration Insulin Human Regular 10 unit 10/26/18 08:15 10/26/18 08:24 Humulin R SUBCUT 10/26/18 08:16 10 units ONETIME ONE Administration Methylprednisolone Sodium Succinate 62.5 mg 10/26/18 07:54 10/26/18 07:58 Solu-Medrol IVPUSH 10/26/18 07:55 62.5 mg NOW ONE Administration Departure - Departure Time of Disposition: 08:38 Disposition: Home, Self-Care 01 Condition: Good Clinical Impression: Allergic reaction Qualifiers: Encounter type: initial encounter Qualified Code(s): T78.40XA - Allergy, unspecified, initial encounter Hyperglycemia due to type 2 diabetes mellitus Qualifiers: Diabetes mellitus terminal worker insulin use: with halfway use Qualified Code(s): E11.65 - Type 2 diabetes mellitus with hyperglycemia - Discharge Information *PRESCRIPTION DRUG MONITORING PROGRAM REVIEWED*: Not Applicable *COPY OF PRESCRIPTION DRUG MONITORING REPORT IN PATIENT LYN: Not Applicable Instructions: Drug Allergy, [id number] Forms: ED Department Discharge Additional Instructions: Take Benadryl 25mg or 50mg if itching or rash returns (follow directions on bottle). Call your doctor today to report the reaction. Return to ER if worse at any time. - My Orders Last 24 Hours: My Active Orders 10/26/18 08:16 Blood Glucose Check, Bedside [RC] ONETIME - Assessment/Plan Last 24 Hours: My Active Orders 10/26/18 08:16 Blood Glucose Check, Bedside [RC] ONETIME
== END 2018-10-26 08:47 | disposition home or self-care (01) ==
LOC: DL.ED 07:13
DX: L27.0 Generalized skin eruption due to drugs and medicaments taken internally (principal); T36.1X5A Adverse effect of cephalosporins and other beta-lactam antibiotics, initial encounter; E11.65 Type 2 diabetes mellitus with hyperglycemia; I25.10 Atherosclerotic heart disease of native coronary artery without angina pectoris; J44.9 Chronic obstructive pulmonary disease, unspecified; I12.9 Hypertensive chronic kidney disease with stage 1 through stage 4 chronic kidney disease, or unspecified chronic kidney disease; E11.22 Type 2 diabetes mellitus with diabetic chronic kidney disease; N18.9 Chronic kidney disease, unspecified; E11.40 Type 2 diabetes mellitus with diabetic neuropathy, unspecified; Z79.4 Long term (current) use of insulin; Z79.899 Other long term (current) drug therapy; Z79.82 Long term (current) use of aspirin; Z95.1 Presence of aortocoronary bypass graft
CPT/HCPCS: 36415; 80053; 85027; 96374; 96375; 99283; J1200; J1815; J2930

== ENCOUNTER 2019-10-09 07:03 | Emergency (ER) | payer OTHER ==
[2019-10-09 07:35] VITALS: BP 131/73; PULSE 84
[2019-10-09] MEDS ORDERED: Tetracaine HCl/PF 0.5% 4 ML Bottle EYELF ONE (07:56)
--- NOTE | 2019-10-09 07:56 | EDM.PDOC ---
ED HPI GENERAL MEDICAL PROBLEM - General Chief Complaint: Eye Problems Stated Complaint: LEFT EYE PROBLEM Time Seen by Provider: 10/09/19 07:55 Source of Information: Reports: Patient, RN, RN Notes Reviewed History Limitations: Reports: No Limitations - History of Present Illness INITIAL COMMENTS - FREE TEXT/NARRATIVE: Pt presents to ER with c/o something in the left eye since Monday evening, maybe fiberglass dust. 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 He states he is able to see, but is very light sensitive. He reports the eye is red and irritated. Pt rates the pain 6/10. He took Ibuprofen 400mg last evening at 1800HRS. Tetanus vaccine was less than 5 yrs ago per pt. Onset Date: 10/07/19 Duration: Constant Location: Reports: Other (Left eye) Quality: Reports: Other (Irritated) Severity: Moderate Improves with: Reports: None Worsens with: Reports: None Associated Symptoms: Reports: No Other Symptoms Left Eye Pain Score (Numeric/FACES): 6 - Related Data Allergies Allergy/AdvReac Type Severity Reaction Status Date / Time No Known Allergies Allergy Verified 10/09/19 07:35 Home Meds: Home Meds Insulin Aspart [NovoLOG] 40 unit SQ TID 10/06/13 [History] Clopidogrel [Plavix] 75 mg PO DAILY 04/19/14 [History] Insulin Detemir [Levemir] 80 units SQ BID 04/19/14 [History] Metoprolol Tartrate [Lopressor] 25 mg PO DAILY 04/19/14 [History] Rosuvastatin [Crestor] 40 mg PO DAILY 04/19/14 [History] Lisinopril [Prinivil] 10 mg PO DAILY 12/05/15 [History] metFORMIN HCl [Metformin HCl] 500 mg PO BID 12/05/15 [History] Aspirin [Ecotrin EC] 81 mg PO DAILY 08/10/17 [History] Past Medical History - Past Health History Medical/Surgical History: Denies Medical/Surgical History HEENT History: Reports: None Cardiovascular History: Reports: Bypass, CAD, Hypertension Other Cardiovascular History: 4 way bypass, 2013 Respiratory History: Reports: COPD, Sleep Apnea Gastrointestinal History: Reports: Pancreatitis Other Gastrointestinal History: UMBILICAL HERNIA Genitourinary History: Reports: Chronic Renal Insuffiency Musculoskeletal History: Reports: Other (See Below) Other Musculoskeletal History: shoulder pain since October 26, 2015 Neurological History: Reports: Neuropathy, Diabetic Psychiatric History: Reports: None Endocrine/Metabolic History: Reports: Diabetes, Type II, Obesity/BMI 30+ Hematologic History: Reports: None Immunologic History: Reports: None Oncologic (Cancer) History: Reports: None Dermatologic History: Reports: None - Infectious Disease History Infectious Disease History: Reports: Chicken Pox - Past Surgical History Head Surgeries/Procedures: Reports: None HEENT Surgical History: Reports: None Cardiovascular Surgical History: Reports: Coronary Artery Bypass Respiratory Surgical History: Reports: None GI Surgical History: Reports: Appendectomy, Hernia Repair/Other Male Surgical History: Reports: None Endocrine Surgical History: Reports: None Neurological Surgical History: Reports: None Oncologic Surgical History: Reports: None Dermatological Surgical History: Reports: None Social & Family History - Family History Family Medical History: Noncontributory - Tobacco Use Smoking Status *Q: Current Every Day Smoker Years of Tobacco use: 30 Packs/Tins Daily: 2 Second Hand Smoke Exposure: No - Caffeine Use Caffeine Use: Reports: Coffee - Recreational Drug Use Recreational Drug Use: No - Living Situation & Occupation Living situation: Reports: with Family Occupation: Employed ED ROS GENERAL - Review of Systems Review Of Systems: Comprehensive ROS is negative, except as noted in HPI. ED EXAM GENERAL W FULL EYE - Physical Exam Exam: See Below Exam Limited By: No Limitations General Appearance: Alert, WD/WN, No Apparent Distress Eye Exam: Right Eye: Normal Inspection, Left Eye: Conjunctival Injection, Corneal Abrasion, Bilateral Eye: EOMI, PERRL Eyelids: Left: Lid Everted for Exam, Bilateral: Normal Appearance Conjunctiva & Sclera: Right: Normal Appearance, Left: Injected Cornea Exam: Left: Corneal Abrasion, Examined with Flourescein Extraocular Movements: Bilateral: Intact Pupils: Normal Accommodation Pupillary Size: Bilateral: 3 mm Anterior Chamber: Left: Normal Appearance Head: Atraumatic, Normocephalic Respiratory/Chest: No Respiratory Distress Neurological: Alert, Oriented, No Motor/Sensory Deficits Psychiatric: Normal Mood Skin Exam: Warm, Dry, Intact ED EYE w/ Add Procedure - Eye Procedure Alcaine Drops Administered: Yes Eye FB Removal: no Removal w/ Cotton Swab, no Removal w/ Needle, no Other Antibiotic Oinment/Drps Admin: Left Eye Progress: No foreign body seen. Course - Vital Signs Last Recorded V/S: Last Vital Signs Temp 97.6 F 10/09/19 07:31 Pulse 84 10/09/19 07:31 Resp 18 10/09/19 07:31 BP 131/73 10/09/19 07:31 Pulse Ox 97 10/09/19 07:31 - Orders/Labs/Meds Meds: Medications Discontinued Medications Generic Name Dose Route Start Last Admin Trade Name Jake PRN Reason Stop Dose Admin Fluorescein Sodium 1 mg 10/09/19 07:58 10/09/19 08:04 Ful-Olga EYELF 10/09/19 07:59 1 mg ONETIME ONE Administration Gentamicin Sulfate 1 ml 10/09/19 07:57 10/09/19 08:04 Garamycin 0.3% Ophth Soln EYELF 10/09/19 07:58 1 ml ONETIME ONE Administration Tetracaine HCl 1 ml 10/09/19 07:56 10/09/19 08:04 Tetracaine 0.5% Steri-Unit Ivet EYELF 10/09/19 07:57 1 ml ONETIME ONE Administration Departure - Departure Time of Disposition: 08:21 Disposition: Home, Self-Care 01 Condition: Good Clinical Impression: Corneal abrasion Qualifiers: Encounter type: initial encounter Laterality: left Qualified Code(s): S05.02XA - Injury of conjunctiva and corneal abrasion without foreign body, left eye, initial encounter - Discharge Information *PRESCRIPTION DRUG MONITORING PROGRAM REVIEWED*: No *COPY OF PRESCRIPTION DRUG MONITORING REPORT IN PATIENT LYN: No Instructions: Corneal Abrasion Forms: ED Department Discharge Additional Instructions: Gentamicin Ophthalmic Solution 0.3% One drop in left eye every four hours for five days. Tetracaine Ophthalmic Solution One drop in left eye every 2 to 4 hours as needed for pain for 24 hours only. Follow up in eye clinic in 2 to 3 days for recheck. Wear sunglasses for 3 days. Sepsis Event Note - Evaluation Sepsis Screening Result: No Definite Risk - Focused Exam Vital Signs: Vital Signs Temp Pulse Resp BP Pulse Ox 10/09/19 07:31 97.6 F 84 18 131/73 97 Date Exam was Performed: 10/09/19 Time Exam was Performed: 08:39
[2019-10-09] MEDS ORDERED: Gentamicin 0.3% Ophth Soln 5 ML Bottle EYELF ONE (07:57)
[2019-10-09] MEDS ORDERED: Fluorescein 1 MG Ophth Strip EYELF ONE (07:58)
== END 2019-10-09 08:32 | disposition home or self-care (01) ==
LOC: DL.ED 07:03
DX: S05.02XA Injury of conjunctiva and corneal abrasion without foreign body, left eye, initial encounter (principal); Z57.2 Occupational exposure to dust; T65.831A Toxic effect of fiberglass, accidental (unintentional), initial encounter; X58.XXXA Exposure to other specified factors, initial encounter; I25.10 Atherosclerotic heart disease of native coronary artery without angina pectoris; I12.9 Hypertensive chronic kidney disease with stage 1 through stage 4 chronic kidney disease, or unspecified chronic kidney disease; N18.9 Chronic kidney disease, unspecified; J44.9 Chronic obstructive pulmonary disease, unspecified; G47.30 Sleep apnea, unspecified; E11.22 Type 2 diabetes mellitus with diabetic chronic kidney disease; E11.40 Type 2 diabetes mellitus with diabetic neuropathy, unspecified; F17.210 Nicotine dependence, cigarettes, uncomplicated; E66.9 Obesity, unspecified; Z68.34 Body mass index [BMI] 34.0-34.9, adult; Z79.82 Long term (current) use of aspirin; Z79.4 Long term (current) use of insulin; Z95.1 Presence of aortocoronary bypass graft; Z79.899 Other long term (current) drug therapy
CPT/HCPCS: 99283; A9270

== ENCOUNTER 2019-11-20 05:43 | Emergency (ER) | payer OTHER ==
[2019-11-20 06:09] VITALS: BP 136/79; PULSE 83
--- NOTE | 2019-11-20 06:10 | EDM.PDOC ---
<Mira Nguyen - Last Filed: 11/20/19 06:10> ED HPI GENERAL MEDICAL PROBLEM - General Chief Complaint: Lower Extremity Injury/Pain Stated Complaint: CORTISONE SHOT IN FOOT, CANT HARDLY WALK Time Seen by Provider: 11/20/19 06:00 Source of Information: Reports: Patient, RN, RN Notes Reviewed History Limitations: Reports: No Limitations - History of Present Illness INITIAL COMMENTS - FREE TEXT/NARRATIVE: Pt to Er with c/o left ankle pain. 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 States he awoke from sleep prior to arrival in severe pain. He states the ankle felt as though it was dislocated, as if a horse had kicked him in the ankle. Patient rates pain 05/25-07/25. Pt states he is a diabetic, uses insulin. States he had the little toe on the right foot removed recently. Patient states he is a smoker. Pt denies fever or chills, swelling, redness to the ankle. Patient does have a history of gout. Onset: Today, Sudden - Related Data Allergies Allergy/AdvReac Type Severity Reaction Status Date / Time No Known Allergies Allergy Verified 11/20/19 06:00 Home Meds: Home Meds Insulin Aspart [NovoLOG] 40 unit SQ TID 10/06/13 [History] Clopidogrel [Plavix] 75 mg PO DAILY 04/19/14 [History] Insulin Detemir [Levemir] 80 units SQ BID 04/19/14 [History] Metoprolol Tartrate [Lopressor] 25 mg PO DAILY 04/19/14 [History] Rosuvastatin [Crestor] 40 mg PO DAILY 04/19/14 [History] Lisinopril [Prinivil] 10 mg PO DAILY 12/05/15 [History] metFORMIN HCl [Metformin HCl] 500 mg PO BID 12/05/15 [History] Aspirin [Ecotrin EC] 81 mg PO DAILY 08/10/17 [History] Past Medical History - Past Health History Medical/Surgical History: Denies Medical/Surgical History HEENT History: Reports: None Cardiovascular History: Reports: Bypass, CAD, Hypertension Other Cardiovascular History: 4 way bypass, 2013 Respiratory History: Reports: COPD, Sleep Apnea Gastrointestinal History: Reports: Pancreatitis Other Gastrointestinal History: UMBILICAL HERNIA Genitourinary History: Reports: Chronic Renal Insuffiency Musculoskeletal History: Reports: Other (See Below) Other Musculoskeletal History: shoulder pain since October 26, 2015 Neurological History: Reports: Neuropathy, Diabetic Psychiatric History: Reports: None Endocrine/Metabolic History: Reports: Diabetes, Type II, Obesity/BMI 30+ Hematologic History: Reports: None Immunologic History: Reports: None Oncologic (Cancer) History: Reports: None Dermatologic History: Reports: None - Infectious Disease History Infectious Disease History: Reports: Chicken Pox - Past Surgical History Head Surgeries/Procedures: Reports: None HEENT Surgical History: Reports: None Cardiovascular Surgical History: Reports: Coronary Artery Bypass Respiratory Surgical History: Reports: None GI Surgical History: Reports: Appendectomy, Hernia Repair/Other Male Surgical History: Reports: None Endocrine Surgical History: Reports: None Neurological Surgical History: Reports: None Oncologic Surgical History: Reports: None Dermatological Surgical History: Reports: None Social & Family History - Family History Family Medical History: Noncontributory - Caffeine Use Caffeine Use: Reports: Coffee - Living Situation & Occupation Living situation: Reports: with Family Occupation: Employed Review of Systems - Review of Systems Review Of Systems: Comprehensive ROS is negative, except as noted in HPI. ED EXAM, GENERAL - Physical Exam Exam: See Below Exam Limited By: No Limitations General Appearance: Alert, WD/WN, Mild Distress Eye Exam: Bilateral Eye: EOMI, Normal Inspection Ears: Normal External Exam, Hearing Grossly Normal Nose: Normal Inspection Throat/Mouth: Normal Inspection, Normal Voice, No Airway Compromise Head: Atraumatic, Normocephalic Neck: Normal Inspection, Supple, Non-Tender, Full Range of Motion Respiratory/Chest: No Respiratory Distress, Decreased Breath Sounds, Crackles ( faint, bases bilaterally) Cardiovascular: Normal Peripheral Pulses, Regular Rate, Rhythm, No Edema, No Gallop, No JVD, No Murmur, No Rub Peripheral Pulses: 2+: Radial (L), Radial (R), Dorsalis Pedis (L) GI/Abdominal: Normal Bowel Sounds, Soft, Non-Tender (Male) Exam: Deferred Rectal (Males) Exam: Deferred Back Exam: Normal Inspection, Full Range of Motion, NT Extremities: Normal Inspection, Normal Range of Motion, No Pedal Edema, Normal Capillary Refill, Leg Pain (left ankle), Limited Range of Motion (Left ankle, tender to touch). No: Joint Swelling, Increased Warmth, Mottled, Pallor, Redness Neurological: Alert, Oriented, CN II-XII Intact, Normal Cognition, Normal Gait, Normal Reflexes, No Motor/Sensory Deficits Psychiatric: Normal Affect, Normal Mood Skin Exam: Warm, Dry, Intact, Normal Color, No Rash Lymphatic: No Adenopathy Course - Vital Signs Last Recorded V/S: Last Vital Signs Temp 96.1 F 11/20/19 06:01 Pulse 83 11/20/19 06:01 Resp 16 11/20/19 06:01 BP 136/79 11/20/19 06:01 Pulse Ox 100 11/20/19 06:01 - Orders/Labs/Meds Orders: Active Orders 24 hr Category Date Time Status C-REACTIVE PROTEIN [CHEM] Stat Lab 11/20/19 06:18 Received DME for Discharge [COMM] Routine Oth 11/20/19 06:59 Ordered Labs: Laboratory Tests 11/20/19 11/20/19 11/20/19 Range/Units 06:18 06:18 06:18 WBC 8.3 (5.0-10.0) 10^3/uL RBC 5.17 (4.6-6.2) 10^6/uL Hgb 15.5 (14.0-18.0) g/dL Hct 44.6 (40.0-54.0) % MCV 86.3 (80-100) fL MCH 30.0 (27.0-34.0) pg MCHC 34.8 (33.0-35.0) g/dL Plt Count 159 (150-450) 10^3/uL Neut % (Auto) 72.4 (42.2-75.2) % Lymph % (Auto) 18.1 L (20.5-50.1) % [place] % (Auto) 7.7 (2-8) % Eos % (Auto) 1.3 (1.0-3.0) % Baso % (Auto) 0.5 (0.0-1.0) % ESR 4 (0-15) mm/hr Sodium 132 L (135-145) mmol/L Potassium 4.2 (3.6-5.0) mmol/L Chloride 98 L (101-111) mmol/L Carbon Dioxide 24.0 (21.0-31.0) mmol/L Anion Gap 14.2 BUN 16 (7-18) mg/dL Creatinine 0.8 (0.6-1.3) mg/dL Est Cr Clr Drug Dosing 122.07 mL/min Estimated GFR (MDRD) > 60 BUN/Creatinine Ratio 20.00 Glucose 417 H* (74-105) mg/dL Uric Acid 4.8 (2.6-7.2) mg/dL Calcium 8.8 (8.4-10.2) mg/dl Total Bilirubin 0.7 (0.2-1.0) mg/dL AST 20 (10-42) IU/L ALT 25 (10-60) IU/L Alkaline Phosphatase 96 (42-121) IU/L Total Protein 6.6 L (6.7-8.2) g/dl Albumin 4.0 (3.2-5.5) g/dl Globulin 2.6 Albumin/Globulin Ratio 1.54 Meds: Medications Discontinued Medications Generic Name Dose Route Start Last Admin Trade Name Freq PRN Reason Stop Dose Admin Hydrocodone Bitart/Acetaminophen 1 tab 11/20/19 06:41 11/20/19 06:45 [place] 325-5 Mg PO 11/20/19 06:42 1 tab ONETIME ONE Administration - Radiology Interpretation Free Text/Narrative:: Left ankle xray: See rad report Departure - Departure Disposition: Home, Self-Care 01 Clinical Impression: Left ankle pain Qualifiers: Chronicity: acute Qualified Code(s): M25.572 - Pain in left ankle and joints of left foot Steroid side effects Qualifiers: Encounter type: initial encounter Qualified Code(s): T38.0X5A - Adverse effect of glucocorticoids and synthetic analogues, initial encounter Hyperglycemia due to type 2 diabetes mellitus Qualifiers: Diabetes mellitus detention insulin use: with detention use Qualified Code(s): E11.65 - Type 2 diabetes mellitus with hyperglycemia; 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 Try heat or ice to see if either help relieve the pain. Follow up in podiatry clinic today with Dr. Stacy Perdue. Call at 8:00AM to inform her of the ankle pain. Sepsis Event Note - Focused Exam Vital Signs: Vital Signs Temp Pulse Resp BP Pulse Ox 11/20/19 06:01 96.1 F 83 16 136/79 100 Date Exam was Performed: 11/20/19 Time Exam was Performed: 06:10 - My Orders Last 24 Hours: My Active Orders 11/20/19 06:59 DME for Discharge [COMM] Routine - Assessment/Plan Last 24 Hours: My Active Orders 11/20/19 06:59 DME for Discharge [COMM] Routine <Mello Young - Last Filed: 11/20/19 07:09> ED HPI GENERAL MEDICAL PROBLEM Left Anterior Ankle Pain Score (Numeric/FACES): 6 Course - Radiology Interpretation Free Text/Narrative:: Left ankle XR: no fractures, see Rad. report. Departure - Departure Time of Disposition: 07:02 Condition: Fair - Discharge Information *PRESCRIPTION DRUG MONITORING PROGRAM REVIEWED*: No *COPY OF PRESCRIPTION DRUG MONITORING REPORT IN PATIENT LYN: No Sepsis Event Note - Focused Exam Date Exam was Performed: 11/20/19 Time Exam was Performed: 07:00
[2019-11-20] MEDS ORDERED: Acetaminophen/HYDROcodone 325-5 MG Tab PO ONE (06:41)
[2019-11-20 06:54] LABS: ANION GAP 14.2; CHLORIDE,CL 98 mmol/L (101-111); SODIUM,NA 132 mmol/L (135-145)
== END 2019-11-20 07:27 | disposition home or self-care (01) ==
LOC: DL.ED 05:43
DX: M25.572 Pain in left ankle and joints of left foot (principal); T38.0X5A Adverse effect of glucocorticoids and synthetic analogues, initial encounter; E11.65 Type 2 diabetes mellitus with hyperglycemia; I10 Essential (primary) hypertension; I25.10 Atherosclerotic heart disease of native coronary artery without angina pectoris; J44.9 Chronic obstructive pulmonary disease, unspecified; E11.9 Type 2 diabetes mellitus without complications; E66.9 Obesity, unspecified; Z79.82 Long term (current) use of aspirin; Z79.02 Long term (current) use of antithrombotics/antiplatelets; Z79.4 Long term (current) use of insulin; Z68.34 Body mass index [BMI] 34.0-34.9, adult
CPT/HCPCS: 36415; 73610; 80053; 84550; 85025; 85651; 86140; 99283; A9270

== ENCOUNTER 2020-03-04 06:02 | Emergency (ER) | payer OTHER ==
[2020-03-04] MEDS ORDERED: Ondansetron 4 MG/2 ML SDV IVPUSH ONE (06:15)
[2020-03-04] MEDS ORDERED: HYDROmorphone 1 MG/ML Syringe IVPUSH ONE (06:15)
[2020-03-04] MEDS ORDERED: Sodium Chloride 0.9% 1,000 ML IV ONE (06:15)
--- NOTE | 2020-03-04 06:41 | EDM.PDOC ---
<Mira Nguyen - Last Filed: 03/04/20 12:37> ED HPI GENERAL MEDICAL PROBLEM - General Stated Complaint: LOWER BACK PAIN Time Seen by Provider: 03/04/20 06:13 - Related Data Allergies Allergy/AdvReac Type Severity Reaction Status Date / Time No Known Allergies Allergy Verified 03/04/20 06:48 Home Meds: Home Meds Insulin Aspart [NovoLOG] 40 unit SQ TID 10/06/13 [History] Clopidogrel [Plavix] 75 mg PO DAILY 04/19/14 [History] Insulin Detemir [Levemir] 80 units SQ BID 04/19/14 [History] Metoprolol Tartrate [Lopressor] 25 mg PO DAILY 04/19/14 [History] Rosuvastatin [Crestor] 40 mg PO DAILY 04/19/14 [History] Lisinopril [Prinivil] 10 mg PO DAILY 12/05/15 [History] metFORMIN HCl [Metformin HCl] 500 mg PO BID 12/05/15 [History] Aspirin [Ecotrin EC] 81 mg PO DAILY 08/10/17 [History] Course - Vital Signs Last Recorded V/S: Last Vital Signs Temp 96.5 F L 03/04/20 06:05 Pulse 86 03/04/20 06:05 Resp 20 03/04/20 06:05 BP 149/82 H 03/04/20 06:05 Pulse Ox 98 03/04/20 06:05 - Orders/Labs/Meds Labs: Laboratory Tests 03/04/20 03/04/20 03/04/20 Range/Units 06:12 06:12 06:12 WBC 7.8 (5.0-10.0) 10^3/uL RBC 5.61 (4.6-6.2) 10^6/uL Hgb 16.6 (14.0-18.0) g/dL Hct 48.4 (40.0-54.0) % MCV 86.3 (80-100) fL MCH 29.6 (27.0-34.0) pg MCHC 34.3 (33.0-35.0) g/dL Plt Count 164 (150-450) 10^3/uL Neut % (Auto) 69.1 (42.2-75.2) % Lymph % (Auto) 23.3 (20.5-50.1) % [place] % (Auto) 5.8 (2-8) % Eos % (Auto) 1.5 (1.0-3.0) % Baso % (Auto) 0.3 (0.0-1.0) % Sodium 135 L (136-145) mmol/L Potassium 4.4 (3.5-5.1) mmol/L Chloride 97 L (98-107) mmol/L Carbon Dioxide 28 (21-32) mmol/L Anion Gap 14.4 H (7-13) mEq/L BUN 24 H (7-18) mg/dL Creatinine 1.10 (0.70-1.30) mg/dL Est Cr Clr Drug Dosing 87.77 mL/min Estimated GFR (MDRD) > 60 BUN/Creatinine Ratio 21.8 (No establ ref range) Glucose 398 H (74-99) mg/dL Lactic Acid (0.4-2.0) mmol/L Calcium 9.0 (8.5-10.1) mg/dL Total Bilirubin 0.5 (0.2-1.0) mg/dL AST 15 (15-37) U/L ALT 33 (16-63) U/L Alkaline Phosphatase 102 (46-116) U/L Total Protein 7.0 (6.4-8.2) g/dL Albumin 3.6 (3.4-5.0) g/dL Globulin 3.4 Albumin/Globulin Ratio 1.1 Urine Color Yellow (YELLOW) Urine Appearance Clear (CLEAR) Urine pH 6.0 (5.0-9.0) Ur Specific [place] 1.020 (1.005-1.030) Urine Protein 30 H (NEGATIVE) Urine Glucose (UA) 500 H (NEGATIVE) Urine Ketones Negative (NEGATIVE) Urine Occult Blood Small H (NEGATIVE) Urine Nitrite Negative (NEGATIVE) Urine Bilirubin Negative (NEGATIVE) Urine Urobilinogen 0.2 (0.2-1.0) mg/dL Ur Leukocyte Esterase Negative (NEGATIVE) Urine RBC 5-10 H /HPF Urine WBC Not seen (0-5/HPF) /HPF Ur Epithelial Cells Rare (NOT SEEN) /HPF Urine Bacteria Not seen (0-FEW/HPF) /HPF Urine Mucus Not seen (NOT SEEN) /LPF /20/20 Range/Units 06:12 WBC (5.0-10.0) 10^3/uL RBC (4.6-6.2) 10^6/uL Hgb (14.0-18.0) g/dL Hct (40.0-54.0) % MCV (80-100) fL MCH (27.0-34.0) pg MCHC (33.0-35.0) g/dL Plt Count (150-450) 10^3/uL Neut % (Auto) (42.2-75.2) % Lymph % (Auto) (20.5-50.1) % [place] % (Auto) (2-8) % Eos % (Auto) (1.0-3.0) % Baso % (Auto) (0.0-1.0) % Sodium (136-145) mmol/L Potassium (3.5-5.1) mmol/L Chloride (98-107) mmol/L Carbon Dioxide (21-32) mmol/L Anion Gap (7-13) mEq/L BUN (7-18) mg/dL Creatinine (0.70-1.30) mg/dL Est Cr Clr Drug Dosing mL/min Estimated GFR (MDRD) BUN/Creatinine Ratio (No establ ref range) Glucose (74-99) mg/dL Lactic Acid 1.9 (0.4-2.0) mmol/L Calcium (8.5-10.1) mg/dL Total Bilirubin (0.2-1.0) mg/dL AST (15-37) U/L ALT (16-63) U/L Alkaline Phosphatase (46-116) U/L Total Protein (6.4-8.2) g/dL Albumin (3.4-5.0) g/dL Globulin Albumin/Globulin Ratio Urine Color (YELLOW) Urine Appearance (CLEAR) Urine pH (5.0-9.0) Ur Specific [place] (1.005-1.030) Urine Protein (NEGATIVE) Urine Glucose (UA) (NEGATIVE) Urine Ketones (NEGATIVE) Urine Occult Blood (NEGATIVE) Urine Nitrite (NEGATIVE) Urine Bilirubin (NEGATIVE) Urine Urobilinogen (0.2-1.0) mg/dL Ur Leukocyte Esterase (NEGATIVE) Urine RBC /HPF Urine WBC (0-5/HPF) /HPF Ur Epithelial Cells (NOT SEEN) /HPF Urine Bacteria (0-FEW/HPF) /HPF Urine Mucus (NOT SEEN) /LPF Meds: Medications Discontinued Medications Generic Name Dose Route Start Last Admin Trade Name Freq PRN Reason Stop Dose Admin Hydromorphone HCl 1 mg 03/04/20 06:15 03/04/20 06:30 Dilaudid IVPUSH 03/04/20 06:16 1 mg ONETIME ONE Administration Sodium Chloride 1,000 mls @ 500 mls/hr 03/04/20 06:15 03/04/20 06:31 Normal Saline IV 03/04/20 08:14 500 mls/hr .BOLUS ONE Administration Ondansetron HCl 4 mg 03/04/20 06:15 03/04/20 06:28 Zofran IVPUSH 03/04/20 06:16 4 mg ONETIME ONE Administration - Radiology Interpretation Free Text/Narrative:: CT Abdomen/Pelvis wo contrast: FINDINGS: Limitations: Evaluation is somewhat limited by lack of IV contrast. Lungs: The visualized lung bases demonstrate minor dependent atelectasis. Liver: Grossly unremarkable. Gallbladder and bile ducts: No gallstones are evident, but ultrasound would be more sensitive. No gross biliary ductal dilatation. Pancreas: Grossly unremarkable. Spleen: Grossly unremarkable. Adrenals: Grossly unremarkable. Kidneys and ureters: Grossly unremarkable. No hydronephrosis or renal or ureteral calculus. Stomach and bowel: The unopacified small bowel is not significantly distended to suggest obstruction. There is again mild descending and sigmoid colonic diverticulosis without evidence for diverticulitis. The large bowel is otherwise grossly unremarkable in appearance. Appendix: There are again operative changes of appendectomy. Intraperitoneal space: No free air or significant free fluid. Vasculature: Coronary artery calcifications are again present. The abdominal aorta is nonaneurysmal. Atherosclerotic vascular calcifications are again present. Lymph nodes: No gross pathologic lymphadenopathy. Bladder: Grossly unremarkable. Reproductive: The prostate is again large, measuring 5.2 x 4.8 cm. Bones/joints: Degenerative changes again involve the spine, sacroiliac joints and hips. Soft tissues: There are again small fat containing bilateral inguinal hernias. IMPRESSION: 1. No hydronephrosis, renal or ureteral calculus or other gross acute abnormality identified. 2. Mild left-sided colonic diverticulosis without evidence for diverticulitis, as on 04/10/17. 3. Persistent prostatomegaly. 4. Similar small fat containing bilateral inguinal hernias. COMMENTS: Depending on suspected etiology of symptoms, consider a targeted ultrasound or contrast enhanced exam. Thank you for allowing us to participate in the care of your patient. Dictated and Authenticated by: Keny Hutchins MD 03/04/2020 7:30 AM Central Time ([place] & [place]) See rad report Departure - Departure Time of Disposition: 07:55 Disposition: Home, Self-Care 01 Condition: Fair Clinical Impression: Right flank pain, Diverticulosis Hyperglycemia due to type 2 diabetes mellitus Qualifiers: Diabetes mellitus mcc insulin use: with mcc use Qualified Code(s): E11.65 - Type 2 diabetes mellitus with hyperglycemia - Discharge Information *PRESCRIPTION DRUG MONITORING PROGRAM REVIEWED*: No *COPY OF PRESCRIPTION DRUG MONITORING REPORT IN PATIENT LYN: No Instructions: Hyperglycemia, [id number], Flank Pain, Adult, [id number] Referrals: Shahram Girard MD [Primary Care Provider] - Forms: ED Department Discharge Additional Instructions: Drink plenty of water Follow up with your primary care facility if no improvement Take medications as prescribed May use Tylenol as directed for pain Sepsis Event Note - Focused Exam Date Exam was Performed: 03/04/20 Time Exam was Performed: 12:37 <Claudette Kimball - Last Filed: 03/05/20 05:56> ED HPI GENERAL MEDICAL PROBLEM - General Source of Information: Reports: Patient, RN History Limitations: Reports: No Limitations - History of Present Illness INITIAL COMMENTS - FREE TEXT/NARRATIVE: ED with c/o right lower back pain for 1.5 weeks. In clinic yesterday. Blood in urine. Pain not improving. nauseated. No fever or chills. No injury. Onset of pain one week Right Flank Pain Score (Numeric/FACES): 3 Past Medical History - Past Health History Medical/Surgical History: Denies Medical/Surgical History HEENT History: Reports: None Cardiovascular History: Reports: Bypass, CAD, Hypertension Other Cardiovascular History: 4 way bypass, 2013 Respiratory History: Reports: COPD, Sleep Apnea Gastrointestinal History: Reports: Pancreatitis Other Gastrointestinal History: UMBILICAL HERNIA Genitourinary History: Reports: Chronic Renal Insuffiency Musculoskeletal History: Reports: Other (See Below) Other Musculoskeletal History: shoulder pain since October 26, 2015 Neurological History: Reports: Neuropathy, Diabetic Psychiatric History: Reports: None Endocrine/Metabolic History: Reports: Diabetes, Type II, Obesity/BMI 30+ Hematologic History: Reports: None Immunologic History: Reports: None Oncologic (Cancer) History: Reports: None Dermatologic History: Reports: None - Infectious Disease History Infectious Disease History: Reports: Chicken Pox - Past Surgical History Head Surgeries/Procedures: Reports: None HEENT Surgical History: Reports: None Cardiovascular Surgical History: Reports: Coronary Artery Bypass Respiratory Surgical History: Reports: None GI Surgical History: Reports: Appendectomy, Hernia Repair/Other Male Surgical History: Reports: None Endocrine Surgical History: Reports: None Neurological Surgical History: Reports: None Oncologic Surgical History: Reports: None Dermatological Surgical History: Reports: None Social & Family History - Family History Family Medical History: Noncontributory - Caffeine Use Caffeine Use: Reports: Coffee - Living Situation & Occupation Living situation: Reports: with Family Occupation: Employed ED ROS GENERAL - Review of Systems Review Of Systems: Comprehensive ROS is negative, except as noted in HPI. ED EXAM,LOWER BACK PAIN/INJURY - Physical Exam Exam: See Below Exam Limited By: No Limitations General Appearance: Alert, Mild Distress, Obese Eye Exam: Bilateral Eye: PERRL Ears: Normal External Exam, Hearing Grossly Normal Nose: Normal Inspection Throat/Mouth: Normal Inspection Head: Atraumatic, Normocephalic Neck: Normal Inspection Respiratory/Chest: No Respiratory Distress, Lungs Clear, Normal Breath Sounds Cardiovascular: Normal Peripheral Pulses, Regular Rate, Rhythm, No Edema GI/Abdominal: Normal Bowel Sounds, Soft, Non-Tender. No: Distended, Guarding, Rigid, Rebound, Tender Back Exam: CVA Tenderness (R), Paraspinal Tenderness. No: Decreased Range of Motion, Vertebral Tenderness Extremities: Normal Inspection Neurological: Alert, Oriented x 3 Psychiatric: Normal Affect, Normal Mood Skin Exam: Warm, Dry, Intact, Normal Color Course - Vital Signs Last Recorded V/S: Last Vital Signs Temp 96.5 F L 03/04/20 06:05 Pulse 86 03/04/20 06:05 Resp 20 03/04/20 06:05 BP 149/82 H 03/04/20 06:05 Pulse Ox 98 03/04/20 06:05 - Orders/Labs/Meds Labs: Laboratory Tests 03/04/20 03/04/20 03/04/20 Range/Units 06:12 06:12 06:12 WBC 7.8 (5.0-10.0) 10^3/uL RBC 5.61 (4.6-6.2) 10^6/uL Hgb 16.6 (14.0-18.0) g/dL Hct 48.4 (40.0-54.0) % MCV 86.3 (80-100) fL MCH 29.6 (27.0-34.0) pg MCHC 34.3 (33.0-35.0) g/dL Plt Count 164 (150-450) 10^3/uL Neut % (Auto) 69.1 (42.2-75.2) % Lymph % (Auto) 23.3 (20.5-50.1) % [place] % (Auto) 5.8 (2-8) % Eos % (Auto) 1.5 (1.0-3.0) % Baso % (Auto) 0.3 (0.0-1.0) % Sodium 135 L (136-145) mmol/L Potassium 4.4 (3.5-5.1) mmol/L Chloride 97 L (98-107) mmol/L Carbon Dioxide 28 (21-32) mmol/L Anion Gap 14.4 H (7-13) mEq/L BUN 24 H (7-18) mg/dL Creatinine 1.10 (0.70-1.30) mg/dL Est Cr Clr Drug Dosing 87.77 mL/min Estimated GFR (MDRD) > 60 BUN/Creatinine Ratio 21.8 (No establ ref range) Glucose 398 H (74-99) mg/dL Lactic Acid (0.4-2.0) mmol/L Calcium 9.0 (8.5-10.1) mg/dL Total Bilirubin 0.5 (0.2-1.0) mg/dL AST 15 (15-37) U/L ALT 33 (16-63) U/L Alkaline Phosphatase 102 (46-116) U/L Total Protein 7.0 (6.4-8.2) g/dL Albumin 3.6 (3.4-5.0) g/dL Globulin 3.4 Albumin/Globulin Ratio 1.1 Urine Color Yellow (YELLOW) Urine Appearance Clear (CLEAR) Urine pH 6.0 (5.0-9.0) Ur Specific [place] 1.020 (1.005-1.030) Urine Protein 30 H (NEGATIVE) Urine Glucose (UA) 500 H (NEGATIVE) Urine Ketones Negative (NEGATIVE) Urine Occult Blood Small H (NEGATIVE) Urine Nitrite Negative (NEGATIVE) Urine Bilirubin Negative (NEGATIVE) Urine Urobilinogen 0.2 (0.2-1.0) mg/dL Ur Leukocyte Esterase Negative (NEGATIVE) Urine RBC 5-10 H /HPF Urine WBC Not seen (0-5/HPF) /HPF Ur Epithelial Cells Rare (NOT SEEN) /HPF Urine Bacteria Not seen (0-FEW/HPF) /HPF Urine Mucus Not seen (NOT SEEN) /LPF 03/04/20 Range/Units 06:12 WBC (5.0-10.0) 10^3/uL RBC (4.6-6.2) 10^6/uL Hgb (14.0-18.0) g/dL Hct (40.0-54.0) % MCV (80-100) fL MCH (27.0-34.0) pg MCHC (33.0-35.0) g/dL Plt Count (150-450) 10^3/uL Neut % (Auto) (42.2-75.2) % Lymph % (Auto) (20.5-50.1) % [place] % (Auto) (2-8) % Eos % (Auto) (1.0-3.0) % Baso % (Auto) (0.0-1.0) % Sodium (136-145) mmol/L Potassium (3.5-5.1) mmol/L Chloride (98-107) mmol/L Carbon Dioxide (21-32) mmol/L Anion Gap (7-13) mEq/L BUN (7-18) mg/dL Creatinine (0.70-1.30) mg/dL Est Cr Clr Drug Dosing mL/min Estimated GFR (MDRD) BUN/Creatinine Ratio (No establ ref range) Glucose (74-99) mg/dL Lactic Acid 1.9 (0.4-2.0) mmol/L Calcium (8.5-10.1) mg/dL Total Bilirubin (0.2-1.0) mg/dL AST (15-37) U/L ALT (16-63) U/L Alkaline Phosphatase (46-116) U/L Total Protein (6.4-8.2) g/dL Albumin (3.4-5.0) g/dL Globulin Albumin/Globulin Ratio Urine Color (YELLOW) Urine Appearance (CLEAR) Urine pH (5.0-9.0) Ur Specific [place] (1.005-1.030) Urine Protein (NEGATIVE) Urine Glucose (UA) (NEGATIVE) Urine Ketones (NEGATIVE) Urine Occult Blood (NEGATIVE) Urine Nitrite (NEGATIVE) Urine Bilirubin (NEGATIVE) Urine Urobilinogen (0.2-1.0) mg/dL Ur Leukocyte Esterase (NEGATIVE) Urine RBC /HPF Urine WBC (0-5/HPF) /HPF Ur Epithelial Cells (NOT SEEN) /HPF Urine Bacteria (0-FEW/HPF) /HPF Urine Mucus (NOT SEEN) /LPF Meds: Medications Discontinued Medications Generic Name Dose Route Start Last Admin Trade Name Freq PRN Reason Stop Dose Admin Hydromorphone HCl 1 mg 03/04/20 06:15 03/04/20 06:30 Dilaudid IVPUSH 03/04/20 06:16 1 mg ONETIME ONE Administration Sodium Chloride 1,000 mls @ 500 mls/hr 03/04/20 06:15 03/04/20 06:31 Normal Saline IV 03/04/20 08:14 500 mls/hr .BOLUS ONE Administration Ondansetron HCl 4 mg 03/04/20 06:15 03/04/20 06:28 Zofran IVPUSH 03/04/20 06:16 4 mg ONETIME ONE Administration - Re-Assessments/Exams Free Text/Narrative Re-Assessment/Exam: 03/04/20 06:41 Care transfer to Mira Nguyen 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 Sepsis Event Note - Focused Exam Date Exam was Performed: 03/05/20 Time Exam was Performed: 05:54
[2020-03-04 06:46] LABS: ANION GAP 14.4 mEq/L (7-13); CHLORIDE,CL 97 mmol/L (98-107); SODIUM,NA 135 mmol/L (136-145)
[2020-03-04 06:48] VITALS: BP 149/82; PULSE 86
== END 2020-03-04 08:38 | disposition home or self-care (01) ==
LOC: DL.ED 06:02
DX: K57.30 Diverticulosis of large intestine without perforation or abscess without bleeding (principal); E11.65 Type 2 diabetes mellitus with hyperglycemia; I10 Essential (primary) hypertension; J44.9 Chronic obstructive pulmonary disease, unspecified; E11.40 Type 2 diabetes mellitus with diabetic neuropathy, unspecified; I25.10 Atherosclerotic heart disease of native coronary artery without angina pectoris; E66.9 Obesity, unspecified; Z68.34 Body mass index [BMI] 34.0-34.9, adult; Z79.4 Long term (current) use of insulin; Z79.02 Long term (current) use of antithrombotics/antiplatelets; Z79.84 Long term (current) use of oral hypoglycemic drugs; Z79.82 Long term (current) use of aspirin; Z95.1 Presence of aortocoronary bypass graft
CPT/HCPCS: 36415; 74176; 80053; 81001; 83605; 85025; 96361; 96374; 96375; 99284-25; J1170; J2405; J7030

== ENCOUNTER 2020-11-11 16:40 | Emergency (ER) | payer OTHER ==
--- NOTE | 2020-11-11 17:25 | CR ---
PROCEDURE INFORMATION: Exam: XR Chest, 1 View Exam date and time: 11/11/2020 5:08 PM Age: 55 years old Clinical indication: Chest pain; Type not specified; Prior surgery; Surgery date: 6+ months TECHNIQUE: Imaging protocol: XR of the chest Views: 1 view. Total images: 1 COMPARISON: CR Chest 2V 11/04/2016 5:04 PM FINDINGS: Lungs: Unremarkable. No consolidation. Pleural spaces: Unremarkable. No pleural effusion. No pneumothorax. Heart/Mediastinum: Borderline to mild cardiomegaly. Bones/joints: Sternotomy wires. IMPRESSION: No acute cardiopulmonary disease.
[2020-11-11 17:35] LABS: ANION GAP 14.2 mEq/L (7-13); CHLORIDE,CL 101 mmol/L (98-107); SODIUM,NA 140 mmol/L (136-145)
[2020-11-11] MEDS ORDERED: Morphine 2 MG/ML SYRINGE IVPUSH ONE ×2 (18:35→23:13)
--- NOTE | 2020-11-11 18:44 | EDM.PDOC ---
<Rohan Raza - Last Filed: 11/11/20 18:39> ED HPI GENERAL MEDICAL PROBLEM - General Chief Complaint: Chest Pain Stated Complaint: CHEST, BACK PAIN FOR LAST TWO DAYS Time Seen by Provider: 11/11/20 18:15 Source of Information: Reports: Patient History Limitations: Reports: No Limitations - History of Present Illness INITIAL COMMENTS - FREE TEXT/NARRATIVE: This 55 yo male patient reports to the ED with left sided chest pain. The patient reports his symptoms started about 1 week ago, but have gotten worse over the past 2 days. The patient reports he did see his primary care provider at the beginning of the symptoms and was placed on an antibiotic. The patient reports he has not had any improvement in his symptoms since he was started on the antibiotic. The patient is scheduled for a cardiac stress test next Monday. Duration: Week(s):, Constant Location: Reports: Chest (left sided chest wall) Quality: Reports: Ache Severity: Moderate Improves with: Reports: None Worsens with: Reports: None Context: Reports: Other Associated Symptoms: Reports: Chest Pain Back Pain Score (Numeric/FACES): 8 - Related Data Allergies Allergy/AdvReac Type Severity Reaction Status Date / Time No Known Allergies Allergy Verified 03/04/20 06:48 Home Meds: Home Meds Insulin Aspart [NovoLOG] 40 unit SQ TID 10/06/13 [History] Clopidogrel [Plavix] 75 mg PO DAILY 04/19/14 [History] Insulin Detemir [Levemir] 80 units SQ BID 04/19/14 [History] Metoprolol Tartrate [Lopressor] 25 mg PO DAILY 04/19/14 [History] Rosuvastatin [Crestor] 40 mg PO DAILY 04/19/14 [History] Lisinopril [Prinivil] 10 mg PO DAILY 12/05/15 [History] metFORMIN HCl [Metformin HCl] 500 mg PO BID 12/05/15 [History] Aspirin [Ecotrin EC] 81 mg PO DAILY 08/10/17 [History] Past Medical History - Past Health History Medical/Surgical History: Denies Medical/Surgical History HEENT History: Reports: None Cardiovascular History: Reports: Bypass, CAD, Hypertension Other Cardiovascular History: 4 way bypass, 2013 Respiratory History: Reports: COPD, Sleep Apnea Gastrointestinal History: Reports: Pancreatitis Other Gastrointestinal History: UMBILICAL HERNIA Genitourinary History: Reports: Chronic Renal Insuffiency Musculoskeletal History: Reports: Other (See Below) Other Musculoskeletal History: shoulder pain since October 26, 2015 Neurological History: Reports: Neuropathy, Diabetic Psychiatric History: Reports: None Endocrine/Metabolic History: Reports: Diabetes, Type II, Obesity/BMI 30+ Hematologic History: Reports: None Immunologic History: Reports: None Oncologic (Cancer) History: Reports: None Dermatologic History: Reports: None - Infectious Disease History Infectious Disease History: Reports: Chicken Pox - Past Surgical History Head Surgeries/Procedures: Reports: None HEENT Surgical History: Reports: None Cardiovascular Surgical History: Reports: Coronary Artery Bypass Respiratory Surgical History: Reports: None GI Surgical History: Reports: Appendectomy, Hernia Repair/Other Male Surgical History: Reports: None Endocrine Surgical History: Reports: None Neurological Surgical History: Reports: None Musculoskeletal Surgical History: Reports: None Oncologic Surgical History: Reports: None Dermatological Surgical History: Reports: None Social & Family History - Family History Family Medical History: No Pertinent Family History - Tobacco Use Tobacco Use Status *Q: Current Every Day Tobacco User Years of Tobacco use: 20 Packs/Tins Daily: 1 - Caffeine Use Caffeine Use: Reports: Coffee - Recreational Drug Use Recreational Drug Use: No - Living Situation & Occupation Living situation: Reports: with Family Occupation: Employed ED ROS GENERAL - Review of Systems Review Of Systems: Comprehensive ROS is negative, except as noted in HPI. ED EXAM, GENERAL - Physical Exam Exam: See Below Exam Limited By: No Limitations General Appearance: Alert, WD/WN, Moderate Distress Eye Exam: Bilateral Eye: EOMI, Normal Inspection, PERRL Ears: Normal External Exam, Normal Canal, Hearing Grossly Normal, Normal TMs Nose: Normal Inspection, Normal Mucosa, No Blood Throat/Mouth: Normal Inspection, Normal Lips, Normal Teeth, Normal Gums, Normal Oropharynx, Normal Voice, No Airway Compromise Head: Atraumatic, Normocephalic Respiratory/Chest: No Respiratory Distress, Lungs Clear, Normal Breath Sounds, No Accessory Muscle Use, Chest Non-Tender Cardiovascular: Normal Peripheral Pulses, Regular Rate, Rhythm, No Edema, No G allop, No JVD, No Murmur, No Rub GI/Abdominal: Normal Bowel Sounds, Soft, Non-Tender, No Organomegaly, No Distention, No Abnormal Bruit, No Mass (Male) Exam: Deferred Rectal (Males) Exam: Deferred Back Exam: Normal Inspection, Full Range of Motion, NT Extremities: Normal Inspection, Normal Range of Motion, Non-Tender, Normal Capillary Refill, No Pedal Edema Neurological: Alert, Oriented, CN II-XII Intact, Normal Cognition, Normal Gait, Normal Reflexes, No Motor/Sensory Deficits Psychiatric: Normal Affect, Normal Mood Skin Exam: Warm, Dry, Intact, Normal Color, No Rash Lymphatic: No Adenopathy Departure - Departure Disposition: DC/Tfer to [facility] 02 Clinical Impression: Chest pain Qualifiers: Chest pain type: unspecified Qualified Code(s): R07.9 - Chest pain, unspecified Hyperglycemia due to type 2 diabetes mellitus Qualifiers: Diabetes mellitus exterminator helper termite insulin use: with alf use Qualified Code(s): E11.65 - Type 2 diabetes mellitus with hyperglycemia Forms: ED Department Discharge Sepsis Event Note (ED) - Evaluation Sepsis Screening Result: No Definite Risk <Claudette Kimball - Last Filed: 11/11/20 23:27> Course - Vital Signs Last Recorded V/S: Last Vital Signs Temp 97.7 F 11/11/20 21:38 Pulse 78 11/11/20 21:38 Resp 18 11/11/20 21:38 BP 149/81 H 11/11/20 21:38 Pulse Ox 97 11/11/20 21:38 - Orders/Labs/Meds Orders: Active Orders 24 hr Category Date Time Status EKG 12 Lead [EKG Documentation Completion] [RC] STAT Care 11/11/20 16:55 Active EKG Documentation Completion [RC] ROUTINE Care 11/11/20 21:00 Active Labs: Laboratory Tests 11/11/20 11/11/20 11/11/20 Range/Units 17:07 17:07 18:40 WBC 8.0 (5.0-10.0) 10^3/uL RBC 5.24 (4.6-6.2) 10^6/uL Hgb 15.9 (14.0-18.0) g/dL Hct 45.3 (40.0-54.0) % MCV 86.5 (80-100) fL MCH 30.3 (27.0-34.0) pg MCHC 35.1 H (33.0-35.0) g/dL Plt Count 203 (150-450) 10^3/uL Neut % (Auto) 60.9 (42.2-75.2) % Lymph % (Auto) 29.1 (20.5-50.1) % Letcher % (Auto) 7.0 (2-8) % Eos % (Auto) 2.5 (1.0-3.0) % Baso % (Auto) 0.5 (0.0-1.0) % Sodium 140 (136-145) mmol/L Potassium 4.2 (3.5-5.1) mmol/L Chloride 101 (98-107) mmol/L Carbon Dioxide 29 (21-32) mmol/L Anion Gap 14.2 H (7-13) mEq/L BUN 14 (7-18) mg/dL Creatinine 1.02 (0.70-1.30) mg/dL Est Cr Clr Drug Dosing 94.65 mL/min Estimated GFR (MDRD) > 60 BUN/Creatinine Ratio 13.7 (No establ ref range) Glucose 318 H (74-99) mg/dL Calcium 8.6 (8.5-10.1) mg/dL Total Bilirubin 0.2 (0.2-1.0) mg/dL AST 13 L (15-37) U/L ALT 32 (16-63) U/L Alkaline Phosphatase 110 (46-116) U/L Troponin I 0.028 (0.000-0.056) ng/mL Total Protein 7.1 (6.4-8.2) g/dL Albumin 3.7 (3.4-5.0) g/dL Globulin 3.4 Albumin/Globulin Ratio 1.1 SARS CoV-2 RNA Rapid ERIC Negative (NEGATIVE) 11/11/20 Range/Units 21:03 WBC (5.0-10.0) 10^3/uL RBC (4.6-6.2) 10^6/uL Hgb (14.0-18.0) g/dL Hct (40.0-54.0) % MCV (80-100) fL MCH (27.0-34.0) pg MCHC (33.0-35.0) g/dL Plt Count (150-450) 10^3/uL Neut % (Auto) (42.2-75.2) % Lymph % (Auto) (20.5-50.1) % Letcher % (Auto) (2-8) % Eos % (Auto) (1.0-3.0) % Baso % (Auto) (0.0-1.0) % Sodium (136-145) mmol/L Potassium (3.5-5.1) mmol/L Chloride (98-107) mmol/L Carbon Dioxide (21-32) mmol/L Anion Gap (7-13) mEq/L BUN (7-18) mg/dL Creatinine (0.70-1.30) mg/dL Est Cr Clr Drug Dosing mL/min Estimated GFR (MDRD) BUN/Creatinine Ratio (No establ ref range) Glucose (74-99) mg/dL Calcium (8.5-10.1) mg/dL Total Bilirubin (0.2-1.0) mg/dL AST (15-37) U/L ALT (16-63) U/L Alkaline Phosphatase (46-116) U/L Troponin I 0.031 (0.000-0.056) ng/mL Total Protein (6.4-8.2) g/dL Albumin (3.4-5.0) g/dL Globulin Albumin/Globulin Ratio SARS CoV-2 RNA Rapid ERIC (NEGATIVE) Meds: Medications Discontinued Medications Generic Name Dose Route Start Last Admin Trade Name Freq PRN Reason Stop Dose Admin Morphine Sulfate 2 mg 11/11/20 18:35 11/11/20 18:40 Morphine IVPUSH 11/11/20 18:36 2 mg ONETIME ONE Administration Morphine Sulfate 2 mg 11/11/20 23:13 Morphine IVPUSH 11/11/20 23:14 ONETIME ONE - Re-Assessments/Exams Free Text/Narrative Re-Assessment/Exam: 11/11/20 23:23 Pain continues has not completely resolved. No SOB. No nausea, No sweating. Same area left lateral chest shoulder and scapular area. Initial troponin 0.028 and repeat 0.031. Counsut Dr Zimmerman [facility] Hospitalist recommnd tx for cardiac consult. Dr Croft accepting. Tx via [facility]. Departure - Departure Time of Disposition: 23:26 Reason for Transfer *Q: Other Condition: Good Sepsis Event Note (ED) - Focused Exam Vital Signs: Vital Signs Temp Pulse Resp BP Pulse Ox 11/11/20 21:38 97.7 F 78 18 149/81 H 97 11/11/20 19:41 97.9 F 85 18 164/86 H 98 11/11/20 18:43 97.9 F 90 20 159/82 H 98 11/11/20 16:51 97.1 F 80 20 164/80 H 100
[2020-11-11 21:38] VITALS: BP 149/81; PULSE 78
== END 2020-11-11 23:46 ==
LOC: DL.ED 16:40
DX: R07.9 Chest pain, unspecified (principal); I25.810 Atherosclerosis of coronary artery bypass graft(s) without angina pectoris; J44.9 Chronic obstructive pulmonary disease, unspecified; I12.9 Hypertensive chronic kidney disease with stage 1 through stage 4 chronic kidney disease, or unspecified chronic kidney disease; E11.22 Type 2 diabetes mellitus with diabetic chronic kidney disease; N18.9 Chronic kidney disease, unspecified; E66.9 Obesity, unspecified; Z68.35 Body mass index [BMI] 35.0-35.9, adult; Z72.0 Tobacco use; Z79.4 Long term (current) use of insulin; Z79.02 Long term (current) use of antithrombotics/antiplatelets; Z79.82 Long term (current) use of aspirin; Z79.899 Other long term (current) drug therapy; Z20.828 Contact with and (suspected) exposure to other viral communicable diseases
CPT/HCPCS: 36415; 71045; 80053; 84484; 85025; 93005; 96374; 96376; 99284; 99285-25; J2270; U0002

== ENCOUNTER 2020-12-05 09:52 | Emergency (ER) | payer OTHER ==
[2020-12-05 10:11] VITALS: BP 133/79; PULSE 97
[2020-12-05] MEDS ORDERED: Acetaminophen/HYDROcodone 325-10 MG Tab PO ONE (11:05)
[2020-12-05] MEDS ORDERED: Bacitracin Oint 1 GM U/D Packet TOP ONE (11:06)
--- NOTE | 2020-12-05 11:13 | EDM.PDOC ---
ED HPI GENERAL MEDICAL PROBLEM - General Chief Complaint: Lower Extremity Injury/Pain Stated Complaint: RIGHT FOOT INFECTED Time Seen by Provider: 12/05/20 11:02 Source of Information: Reports: Patient History Limitations: Reports: No Limitations - History of Present Illness INITIAL COMMENTS - FREE TEXT/NARRATIVE: This 55 yo male patient reports to the ED with right foot pain. The patient reports he has been having increased pain over the past week. The patient did see a zoology technical officer on and was started on an antibiotic (Doxycycline). The patient has been taking the antibiotic as directed, but has noticed increased erythema, pain and drainage. Duration: Day(s):, Constant, Getting Worse Location: Reports: Lower Extremity, Right Quality: Reports: Ache Severity: Moderate Improves with: Reports: None Worsens with: Reports: None Context: Reports: Other Associated Symptoms: Reports: No Other Symptoms Right Feet Pain Score (Numeric/FACES): 6 - Related Data Allergies Allergy/AdvReac Type Severity Reaction Status Date / Time No Known Allergies Allergy Verified 12/05/20 10:13 Past Medical History - Past Health History Medical/Surgical History: Denies Medical/Surgical History HEENT History: Reports: None Cardiovascular History: Reports: Bypass, CAD, Hypertension, [place] Other Cardiovascular History: 4 way bypass, 2013, three stents put in end of October Respiratory History: Reports: COPD, Sleep Apnea Gastrointestinal History: Reports: Pancreatitis Other Gastrointestinal History: UMBILICAL HERNIA Genitourinary History: Reports: Chronic Renal Insuffiency Musculoskeletal History: Reports: Other (See Below) Other Musculoskeletal History: shoulder pain since October 26, 2015 Neurological History: Reports: Neuropathy, Diabetic Psychiatric History: Reports: None Endocrine/Metabolic History: Reports: Diabetes, Type II, Obesity/BMI 30+ Hematologic History: Reports: None Immunologic History: Reports: None Oncologic (Cancer) History: Reports: None Dermatologic History: Reports: None - Infectious Disease History Infectious Disease History: Reports: Chicken Pox - Past Surgical History Head Surgeries/Procedures: Reports: None HEENT Surgical History: Reports: None Cardiovascular Surgical History: Reports: Coronary Artery Bypass Respiratory Surgical History: Reports: None GI Surgical History: Reports: Appendectomy, Hernia Repair/Other Male Surgical History: Reports: None Endocrine Surgical History: Reports: None Neurological Surgical History: Reports: None Musculoskeletal Surgical History: Reports: None Oncologic Surgical History: Reports: None Dermatological Surgical History: Reports: None Social & Family History - Family History Family Medical History: No Pertinent Family History - Tobacco Use Tobacco Use Status *Q: Current Every Day Tobacco User Years of Tobacco use: 20 Packs/Tins Daily: 1 Second Hand Smoke Exposure: No - Caffeine Use Caffeine Use: Reports: Coffee - Recreational Drug Use Recreational Drug Use: No - Living Situation & Occupation Living situation: Reports: with Family Occupation: Employed Review of Systems - Review of Systems Review Of Systems: Comprehensive ROS is negative, except as noted in HPI. ED EXAM, GENERAL - Physical Exam Exam: See Below Exam Limited By: No Limitations General Appearance: Alert, WD/WN, Moderate Distress Eye Exam: Bilateral Eye: EOMI, Normal Inspection, PERRL Ears: Normal External Exam, Normal Canal, Hearing Grossly Normal, Normal TMs Nose: Normal Inspection, Normal Mucosa, No Blood Throat/Mouth: Normal Inspection, Normal Lips, Normal Teeth, Normal Gums, Normal Oropharynx, Normal Voice, No Airway Compromise Head: Atraumatic, Normocephalic Neck: Normal Inspection, Supple, Non-Tender, Full Range of Motion Respiratory/Chest: No Respiratory Distress, Lungs Clear, Normal Breath Sounds, No Accessory Muscle Use, Chest Non-Tender Cardiovascular: Normal Peripheral Pulses, Regular Rate, Rhythm, No Edema, No Gallop, No JVD, No Murmur, No Rub GI/Abdominal: Normal Bowel Sounds, Soft, Non-Tender, No Organomegaly, No Distention, No Abnormal Bruit, No Mass (Male) Exam: Deferred Rectal (Males) Exam: Deferred Back Exam: Normal Inspection, Full Range of Motion, NT Extremities: Other (erythema of the right great toe with an ulceration under the toe. ) Neurological: Alert, Oriented, CN II-XII Intact, Normal Cognition, Normal Gait, Normal Reflexes, No Motor/Sensory Deficits Psychiatric: Normal Affect, Normal Mood Skin Exam: Warm, Dry, Intact, Normal Color, No Rash Lymphatic: No Adenopathy Course - Vital Signs Last Recorded V/S: Last Vital Signs Temp 36.3 C 12/05/20 10:08 Pulse 97 12/05/20 10:08 Resp 18 12/05/20 10:08 BP 133/79 12/05/20 10:08 Pulse Ox 98 12/05/20 10:08 - Orders/Labs/Meds Orders: Active Orders 24 hr Category Date Time Status CULTURE BLOOD [BC] Stat Lab 12/05/20 11:18 Received CULTURE BLOOD [BC] Stat Lab 12/05/20 11:21 Received CULTURE WOUND [RM] Stat Lab 12/05/20 11:07 Received Blood Culture x2 Reflex Set [OM.PC] Stat Oth 12/05/20 11:06 Ordered Labs: Laboratory Tests 12/05/20 12/05/20 12/05/20 Range/Units 11:18 11:18 11:18 WBC 11.1 H (5.0-10.0) 10^3/uL RBC 4.70 (4.6-6.2) 10^6/uL Hgb 14.3 D (14.0-18.0) g/dL Hct 40.8 (40.0-54.0) % MCV 86.8 (80-100) fL MCH 30.4 (27.0-34.0) pg MCHC 35.0 (33.0-35.0) g/dL Plt Count 201 (150-450) 10^3/uL Neut % (Auto) 76.6 H (42.2-75.2) % Lymph % (Auto) 15.0 L (20.5-50.1) % Kings % (Auto) 7.3 (2-8) % Eos % (Auto) 0.8 L (1.0-3.0) % Baso % (Auto) 0.3 (0.0-1.0) % Sodium 134 L (136-145) mmol/L Potassium 4.4 (3.5-5.1) mmol/L Chloride 96 L (98-107) mmol/L Carbon Dioxide 28 (21-32) mmol/L Anion Gap 14.4 H (7-13) mEq/L BUN 18 (7-18) mg/dL Creatinine 0.86 (0.70-1.30) mg/dL Est Cr Clr Drug Dosing 112.26 mL/min Estimated GFR (MDRD) > 60 BUN/Creatinine Ratio 20.9 (No establ ref range) Glucose 339 H (74-99) mg/dL Lactic Acid 1.8 (0.4-2.0) mmol/L Calcium 8.7 (8.5-10.1) mg/dL Total Bilirubin 0.6 (0.2-1.0) mg/dL AST 8 L (15-37) U/L ALT 18 (16-63) U/L Alkaline Phosphatase 104 (46-116) U/L Total Protein 6.8 (6.4-8.2) g/dL Albumin 3.2 L (3.4-5.0) g/dL Globulin 3.6 Albumin/Globulin Ratio 0.89 Meds: Medications Discontinued Medications Generic Name Dose Route Start Last Admin Trade Name Jake PRN Reason Stop Dose Admin Hydrocodone Bitart/Acetaminophen 1 tab 12/05/20 11:05 12/05/20 11:46 Prentiss 325-10 Mg PO 12/05/20 11:06 1 tab ONETIME ONE Administration Bacitracin 1 dose 12/05/20 11:06 12/05/20 11:46 Bacitracin Oint 1 Gm TOP 12/05/20 11:07 1 dose ONETIME ONE Administration Vancomycin HCl 2 gm/ Sodium 500 mls @ 250 mls/hr 12/05/20 12:14 12/05/20 12:24 Chloride IV 12/05/20 14:13 250 mls/hr ONETIME ONE Administration Departure - Departure Time of Disposition: 14:29 Disposition: Home, Self-Care 01 Condition: Fair Clinical Impression: Infected ulcer of skin Qualifiers: Non-pressure ulcer stage: limited to breakdown of skin Qualified Code(s): L98.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 The patient was given an IV dose of Levaquin while in the ED. The patinet was discharged with a script for 1) Keflex (500 mg) #40 to take 1 by mouth 4 times per day for 10 days, 2) Bactrim DS #20 to take 1 by mouth 2 times per day and 3) Prentiss (10/325) #12 to take 1 by mouth every 6 hours as needed for pain. The patient was encouraged to follow-up with his zoology technical officer next week for continued evaluation and further treatment. If the patient has any additional symptoms or further concerns, the patient should either return to the ED, visit his zoology technical officer or visit his primary care facility. Sepsis Event Note (ED) - Evaluation Sepsis Screening Result: No Definite Risk - Focused Exam Vital Signs: Vital Signs Temp Pulse Resp BP Pulse Ox 12/05/20 10:08 36.3 C 97 18 133/79 98 - My Orders Last 24 Hours: My Active Orders 12/05/20 11:06 Blood Culture x2 Reflex Set [OM.PC] Stat 12/05/20 11:07 CULTURE WOUND [RM] Stat 12/05/20 11:18 CULTURE BLOOD [BC] Stat 12/05/20 11:21 CULTURE BLOOD [BC] Stat - Assessment/Plan Last 24 Hours: My Active Orders 12/05/20 11:06 Blood Culture x2 Reflex Set [OM.PC] Stat 12/05/20 11:07 CULTURE WOUND [RM] Stat 12/05/20 11:18 CULTURE BLOOD [BC] Stat 12/05/20 11:21 CULTURE BLOOD [BC] Stat
[2020-12-05 11:45] LABS: ANION GAP 14.4 mEq/L (7-13); CHLORIDE,CL 96 mmol/L (98-107); SODIUM,NA 134 mmol/L (136-145)
[2020-12-05] MEDS ORDERED: Vancomycin 2 GM in Sodium Chloride 0.9% 500 ML IV ONE (12:14)
--- NOTE | 2020-12-05 12:32 | CR ---
EXAMINATION: Foot Comp Min 3V Rt SEX: Male AGE: 55 years CLINICAL HISTORY: 55-year-old male complaining of right foot pain. Interpretation (3 views right foot) abnormal. 1. 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 No underlying subcutaneous emphysema. 2. No foreign bodies. 3. Homogeneous normal bone density for age and gender. No inflammatory periostitis. 4. No sign of right foot fracture or dislocation. 5. Pes cavus and large heel spur at the insertion plantar aponeurosis base of the os calcis (tiny heel spur posteriorly).
== END 2020-12-05 14:38 | disposition home or self-care (01) ==
LOC: DL.ED 09:52
DX: E11.621 Type 2 diabetes mellitus with foot ulcer (principal); L97.511 Non-pressure chronic ulcer of other part of right foot limited to breakdown of skin; I25.10 Atherosclerotic heart disease of native coronary artery without angina pectoris; I12.9 Hypertensive chronic kidney disease with stage 1 through stage 4 chronic kidney disease, or unspecified chronic kidney disease; N18.9 Chronic kidney disease, unspecified; I25.2 Old myocardial infarction; J44.9 Chronic obstructive pulmonary disease, unspecified; E11.40 Type 2 diabetes mellitus with diabetic neuropathy, unspecified; E66.9 Obesity, unspecified; Z68.35 Body mass index [BMI] 35.0-35.9, adult; Z72.0 Tobacco use
CPT/HCPCS: 36415; 73630; 80053; 83605; 85025; 87040; 87070; 96365; 96366; 99283; A9270; J3370; J7040

== ENCOUNTER → 2020-12-07 17:11 | Emergency (ER) | payer OTHER | END | disposition left against medical advice (07) | LOC: DL.ED 17:11 | DX: Z53.21 Procedure and treatment not carried out due to patient leaving prior to being seen by health care provider (principal) ==

== ENCOUNTER 2021-01-25 21:00 | Emergency (ER) | payer OTHER ==
[2021-01-25] MEDS ORDERED: Acetaminophen/HYDROcodone 325-10 MG Tab PO ONE (21:01)
[2021-01-25 21:21] VITALS: BP 114/71; PULSE 91
--- NOTE | 2021-01-25 21:51 | EDM.PDOC ---
ED HPI GENERAL MEDICAL PROBLEM - General Chief Complaint: Lower Extremity Injury/Pain Stated Complaint: SWELLING IN RIGHT FOOT NEED CAST OFF Time Seen by Provider: 01/25/21 21:40 Source of Information: Reports: Patient History Limitations: Reports: No Limitations - History of Present Illness INITIAL COMMENTS - FREE TEXT/NARRATIVE: This 55 yo male patient reports to the ED due to right foot pain. The patient reports he had the cast placed on his right foot last Monday and has been experiencing increased pain in the area since they placed the cast. The patient reports his pain has gotten worse tonight. The patient states he was walking on his foot quite a bit yesterday and has attempted to keep his foot elevated today. The patient reports he has an appointment tomorrow to have the cast removed. Onset: Gradual Duration: Day(s):, Constant, Getting Worse Quality: Reports: Ache, Pressure Severity: Moderate Improves with: Reports: None Worsens with: Reports: None Context: Reports: Other Associated Symptoms: Reports: No Other Symptoms Right Foot Pain Score (Numeric/FACES): 7 - Related Data Allergies Allergy/AdvReac Type Severity Reaction Status Date / Time No Known Allergies Allergy Verified 12/05/20 10:13 Past Medical History - Past Health History Medical/Surgical History: Denies Medical/Surgical History HEENT History: Reports: None Cardiovascular History: Reports: Bypass, CAD, Hypertension, IA Other Cardiovascular History: 4 way bypass, 2013, three stents put in end of October Respiratory History: Reports: COPD, Sleep Apnea Gastrointestinal History: Reports: Pancreatitis Other Gastrointestinal History: UMBILICAL HERNIA Genitourinary History: Reports: Chronic Renal Insuffiency Musculoskeletal History: Reports: Other (See Below) Other Musculoskeletal History: shoulder pain since October 26, 2015 Neurological History: Reports: Neuropathy, Diabetic Psychiatric History: Reports: None Endocrine/Metabolic History: Reports: Diabetes, Type II, Obesity/BMI 30+ Hematologic History: Reports: None Immunologic History: Reports: None Oncologic (Cancer) History: Reports: None Dermatologic History: Reports: None - Infectious Disease History Infectious Disease History: Reports: Chicken Pox - Past Surgical History Head Surgeries/Procedures: Reports: None HEENT Surgical History: Reports: None Cardiovascular Surgical History: Reports: Coronary Artery Bypass Respiratory Surgical History: Reports: None GI Surgical History: Reports: Appendectomy, Hernia Repair/Other Male Surgical History: Reports: None Endocrine Surgical History: Reports: None Neurological Surgical History: Reports: None Musculoskeletal Surgical History: Reports: None Oncologic Surgical History: Reports: None Dermatological Surgical History: Reports: None Social & Family History - Family History Family Medical History: No Pertinent Family History - Tobacco Use Tobacco Use Status *Q: Current Every Day Tobacco User Years of Tobacco use: 20 Packs/Tins Daily: 1 Second Hand Smoke Exposure: Yes - Caffeine Use Caffeine Use: Reports: Coffee - Recreational Drug Use Recreational Drug Use: No - Living Situation & Occupation Living situation: Reports: with Family Occupation: Employed Review of Systems - Review of Systems Review Of Systems: Comprehensive ROS is negative, except as noted in HPI. ED EXAM, GENERAL - Physical Exam Exam: See Below Exam Limited By: No Limitations General Appearance: Alert, WD/WN, Mild Distress Eye Exam: Bilateral Eye: EOMI, Normal Inspection, PERRL Ears: Normal External Exam, Normal Canal, Hearing Grossly Normal, Normal TMs Nose: Normal Inspection Throat/Mouth: Normal Inspection, Normal Lips, Normal Teeth, Normal Gums, Normal Oropharynx, Normal Voice, No Airway Compromise Head: Atraumatic, Normocephalic Neck: Normal Inspection, Supple, Non-Tender, Full Range of Motion Respiratory/Chest: No Respiratory Distress, Lungs Clear, Normal Breath Sounds, No Accessory Muscle Use, Chest Non-Tender Cardiovascular: Normal Peripheral Pulses, Regular Rate, Rhythm, No Edema, No Gallop, No JVD, No Murmur, No Rub GI/Abdominal: Normal Bowel Sounds, Soft, Non-Tender, No Organomegaly, No Distention, No Abnormal Bruit, No Mass (Male) Exam: Deferred Rectal (Males) Exam: Deferred Back Exam: Normal Inspection, Full Range of Motion, NT Extremities: Leg Pain (right foot pain. The patient has a thick cast covering the entire lower leg, ankle and toes of his right foot. The patinet reports pressure inside the cast) Neurological: Alert, Oriented, CN II-XII Intact, Normal Cognition, Normal Gait, Normal Reflexes, No Motor/Sensory Deficits Psychiatric: Normal Affect, Normal Mood Skin Exam: Warm, Dry, Intact, Normal Color, No Rash Lymphatic: No Adenopathy Course - Vital Signs Last Recorded V/S: Last Vital Signs Temp 36.4 C 01/25/21 21:14 Pulse 91 01/25/21 21:14 Resp 18 01/25/21 21:14 BP 114/71 01/25/21 21:14 Pulse Ox 97 01/25/21 21:14 Departure - Departure Time of Disposition: 21:47 Disposition: Home, Self-Care 01 Condition: Fair Clinical Impression: Right foot pain - Discharge Information *PRESCRIPTION DRUG MONITORING PROGRAM REVIEWED*: Not Applicable *COPY OF PRESCRIPTION DRUG MONITORING REPORT IN PATIENT LYN: Not Applicable Instructions: Foot Pain Forms: ED Department Discharge Care Plan Goals: The patient was advised of the examination results during the visit. The patient was advised that the proper equipment was not available to remove the cast. The patient was given an oral dose of Hydrocodone (10/325) to take when he gets home. The patient was advised to have no weight bearing activity on the right foot. The patient was encouraged to elevate his right foot (above the level of his heart) throughout the night. The patient was encouraged to follow-up with his provider in [place] tomorrow as scheduled. If the patient has any additional symptoms oor concerns, the patient should either visit his primary care facility or return to the emergency department. Sepsis Event Note (ED) - Evaluation Sepsis Screening Result: No Definite Risk - Focused Exam Vital Signs: Vital Signs Temp Pulse Resp BP Pulse Ox 01/25/21 21:14 36.4 C 91 18 114/71 97
[2021-01-25] MEDS ORDERED: Acetaminophen/HYDROcodone 325-10 MG Tab ONE (21:54)
== END 2021-01-25 21:57 | disposition home or self-care (01) ==
LOC: DL.ED 21:00
DX: M79.671 Pain in right foot (principal); I25.10 Atherosclerotic heart disease of native coronary artery without angina pectoris; I12.9 Hypertensive chronic kidney disease with stage 1 through stage 4 chronic kidney disease, or unspecified chronic kidney disease; E11.22 Type 2 diabetes mellitus with diabetic chronic kidney disease; N18.9 Chronic kidney disease, unspecified; I25.2 Old myocardial infarction; J44.9 Chronic obstructive pulmonary disease, unspecified; E11.40 Type 2 diabetes mellitus with diabetic neuropathy, unspecified; E66.9 Obesity, unspecified; Z68.36 Body mass index [BMI] 36.0-36.9, adult; Z72.0 Tobacco use
CPT/HCPCS: 99282; 99283; A9270-GY

== ENCOUNTER 2021-04-22 14:29 | Emergency (ER) | payer OTHER | END 2021-04-22 16:23 | disposition left against medical advice (07) | LOC: DL.ED 14:29 | DX: Z53.21 Procedure and treatment not carried out due to patient leaving prior to being seen by health care provider (principal) ==

== ENCOUNTER 2023-02-23 07:18 | Emergency (ER) | payer OTHER ==
[2023-02-23] MEDS ORDERED: Sodium Chloride 0.9% 10 ML Syringe FLUSH PRN (07:22)
[2023-02-23] MEDS ORDERED: Nitroglycerin 0.4 MG Tab.SL SL PRN (07:35)
[2023-02-23] MEDS ORDERED: Aspirin 81 MG Tab.Chew PO ONE (07:35)
[2023-02-23 07:40] LABS: BASOPHILS PERCENT AUTO 0.2 % (0.0-1.0); EOSINOPHILS PERCENT AUTO 1.4 % (1.0-3.0); HEMATOCRIT 43.1 % (40.0-54.0); HEMOGLOBIN 14.5 g/dL (14.0-18.0); LYMPHOCYTES PERCENT AUTO 14.3 % (20.5-50.1); MEAN CORPUSCULAR HEMOGLOBIN 29.7 pg (27.0-34.0); MEAN CORPUSCULAR HGB CONC 33.6 g/dL (33.0-35.0); MEAN CORPUSCULAR VOLUME 88.3 fL (80-100); MONOCYTES PERCENT AUTO 5.4 % (2-8); NEUTROPHILS PERCENT AUTO 78.7 % (42.2-75.2); PLATELET COUNT,PLT 168 10^3/uL (150-450); RED BLOOD CELL COUNT 4.88 10^6/uL (4.6-6.2); WHITE BLOOD CELL COUNT,WBC 8.3 10^3/uL (5.0-10.0)
[2023-02-23] MEDS ORDERED: Morphine 4 MG/ML Syringe IVPUSH ONE (07:57)
[2023-02-23] MEDS ORDERED: Nitroglycerin/D5W 25 MG/250 ML BOTTLE IV SCH (08:00)
[2023-02-23 08:01] LABS: ALBUMIN 3.3 g/dL (3.4-5.0); ANION GAP 9.6 mEq/L (7-13); BILIRUBIN TOTAL 0.5 mg/dL (0.2-1.0); BUN/CREATININE RATIO 26.2 (No establ ref range); CALCIUM 8.9 mg/dL (8.5-10.1); CREATININE 1.03 mg/dL (0.70-1.30); EST CRCL DRUG DOSING (CG) 91.58 mL/min; POTASSIUM,K 4.6 mmol/L (3.5-5.1); PROTEIN TOTAL,TP 6.5 g/dL (6.4-8.2)
[2023-02-23 08:03] VITALS: BP 130/78; PULSE 77
[2023-02-23 08:03] LABS: A/G RATIO 1.03
[2023-02-23] MEDS ORDERED: Insulin Regular, Human 100 Units/ML 3 ML Vial SUBCUT ONE (08:12)
[2023-02-23] MEDS ORDERED: Glucagon,Human Recombinant 1 MG Vial IM PRN (08:12)
[2023-02-23] MEDS ORDERED: 50% Dextrose in Water 50 ML Syringe IVPUSH PRN (08:12)
[2023-02-23 08:15] LABS: INR 0.9 (0.9-1.2); PROTHROMBIN TIME 9.6 SEC (9.0-12.0); PTT,PARTIAL THROMBOPLSTIN TIME 24.7 SEC (22.0-34.0)
[2023-02-23] MEDS ORDERED: Heparin Sodium/0.45% NaCl 25,000 UNITS/500 ML BAG IV SCH (08:45)
== END 2023-02-23 09:01 ==
LOC: DL.ED 07:18
DX: I24.9 Acute ischemic heart disease, unspecified (principal); I25.2 Old myocardial infarction; I25.810 Atherosclerosis of coronary artery bypass graft(s) without angina pectoris; J44.9 Chronic obstructive pulmonary disease, unspecified; I12.9 Hypertensive chronic kidney disease with stage 1 through stage 4 chronic kidney disease, or unspecified chronic kidney disease; E11.22 Type 2 diabetes mellitus with diabetic chronic kidney disease; N18.9 Chronic kidney disease, unspecified; E11.40 Type 2 diabetes mellitus with diabetic neuropathy, unspecified; E66.9 Obesity, unspecified; Z68.35 Body mass index [BMI] 35.0-35.9, adult
CPT/HCPCS: 36415; 71045; 80053; 83880; 84484; 85025; 85610; 85730; 87635; 93005; 93010; 96365; 96375; 99285; A9270; J1644; J1815; J2270; J3490; U0002

== ENCOUNTER 2023-03-23 10:18 | Emergency (ER) | payer OTHER ==
[2023-03-23] MEDS ORDERED: Lidocaine 2% with EPINEPHrine 1:200,000 20 ML SDV INFILT ONE (10:37)
[2023-03-23] MEDS ORDERED: Bacitracin Oint 1 GM U/D Packet TOP ONE (10:38)
[2023-03-23] MEDS ORDERED: Acetaminophen/HYDROcodone 325-10 MG Tab PO ONE (10:38)
[2023-03-23 11:13] VITALS: BP 132/76; PULSE 88
== END 2023-03-23 11:18 | disposition home or self-care (01) ==
LOC: DL.ED 10:18
DX: K61.0 Anal abscess (principal); L02.31 Cutaneous abscess of buttock; I25.2 Old myocardial infarction; J44.9 Chronic obstructive pulmonary disease, unspecified; I12.9 Hypertensive chronic kidney disease with stage 1 through stage 4 chronic kidney disease, or unspecified chronic kidney disease; E11.22 Type 2 diabetes mellitus with diabetic chronic kidney disease; N18.9 Chronic kidney disease, unspecified; E11.40 Type 2 diabetes mellitus with diabetic neuropathy, unspecified; E66.9 Obesity, unspecified; Z68.33 Body mass index [BMI] 33.0-33.9, adult; Z79.4 Long term (current) use of insulin; Z79.02 Long term (current) use of antithrombotics/antiplatelets; Z79.899 Other long term (current) drug therapy
CPT/HCPCS: 10061; 46050; 87070; 87077; 87186; 99283; A9270-GY; J3490

== ENCOUNTER 2023-08-10 08:09 | Emergency (ER) | payer OTHER ==
[2023-08-10] MEDS ORDERED: Sodium Chloride 0.9% 10 ML Syringe FLUSH PRN (08:17)
[2023-08-10] MEDS ORDERED: Aspirin 81 MG Tab.Chew PO ONE (08:28)
[2023-08-10 08:29] LABS: BASOPHILS PERCENT AUTO 0.5 % (0.0-1.0); EOSINOPHILS PERCENT AUTO 0.9 % (1.0-3.0); HEMOGLOBIN 17.3 g/dL (14.0-18.0); LYMPHOCYTES PERCENT AUTO 17.1 % (20.5-50.1); MEAN CORPUSCULAR HEMOGLOBIN 34.2 pg (27.0-34.0); MEAN CORPUSCULAR HGB CONC 37.6 g/dL (33.0-35.0); MEAN CORPUSCULAR VOLUME 90.9 fL (80-100); MONOCYTES PERCENT AUTO 5.7 % (2-8); NEUTROPHILS PERCENT AUTO 75.8 % (42.2-75.2); PLATELET COUNT,PLT 190 10^3/uL (150-450); RED BLOOD CELL COUNT 5.06 10^6/uL (4.6-6.2); WHITE BLOOD CELL COUNT,WBC 8.6 10^3/uL (5.0-10.0)
[2023-08-10 08:36] VITALS: BP 113/70; PULSE 98
[2023-08-10] MEDS ORDERED: Morphine 2 MG/ML SYRINGE IVPUSH ONE (08:39)
[2023-08-10 08:59] LABS: A/G RATIO 0.9; ALBUMIN 3.5 g/dL (3.4-5.0); ANION GAP 13.3 mEq/L (7-13); BILIRUBIN TOTAL 0.2 mg/dL (0.2-1.0); BUN/CREATININE RATIO 15.3 (No establ ref range); CALCIUM 9.2 mg/dL (8.5-10.1); CREATININE 1.9 mg/dL (0.70-1.30); EST CRCL DRUG DOSING (CG) 49.06 mL/min; POTASSIUM,K 4.3 mmol/L (3.5-5.1); PROTEIN TOTAL,TP 7.2 g/dL (6.4-8.2)
[2023-08-10 09:01] LABS: LACTIC ACID 2.8 mmol/L (0.4-2.0)
[2023-08-10] MEDS ORDERED: Sodium Chloride 0.9% 1,000 ML IV ONE (09:02)
[2023-08-10] MEDS ORDERED: Insulin Regular, Human 100 Units/ML 3 ML Vial IV ONE (09:03)
[2023-08-10 09:23] LABS: CORONAVIRUS COVID-19 NAA NEGATIVE (NEGATIVE); INFLUENZA A NAA NEGATIVE (NEGATIVE); INFLUENZA B NAA NEGATIVE (NEGATIVE)
[2023-08-10 10:46] LABS: APPEARANCE,URINE CLEAR (CLEAR); BILIRUBIN,URINE NEGATIVE (NEGATIVE); COLOR,URINE YELLOW (YELLOW); GLUCOSE,URINE 500 (NEGATIVE); KETONES,URINE NEGATIVE (NEGATIVE); LEUKOCYTE ESTERASE,URINE NEGATIVE (NEGATIVE); NITRITE,URINE NEGATIVE (NEGATIVE); OCCULT BLOOD,URINE SMALL (NEGATIVE); PH,URINE 5.5 (5.0-9.0); PROTEIN,URINE TRACE (NEGATIVE); UROBILINOGEN,URINE 0.2 mg/dL (0.2-1.0)
[2023-08-10 11:06] LABS: WBC,URINE NOT SEEN /HPF (0-5/HPF)
[2023-08-10 11:07] LABS: BACTERIA,URINE FEW /HPF (0-FEW/HPF); EPITHELIAL CELLS,URINE RARE /HPF (NOT SEEN)
== END 2023-08-10 11:24 ==
LOC: DL.ED 08:09
DX: I48.92 Unspecified atrial flutter (principal); R79.89 Other specified abnormal findings of blood chemistry; E11.65 Type 2 diabetes mellitus with hyperglycemia; E11.40 Type 2 diabetes mellitus with diabetic neuropathy, unspecified; E11.22 Type 2 diabetes mellitus with diabetic chronic kidney disease; I13.0 Hypertensive heart and chronic kidney disease with heart failure and stage 1 through stage 4 chronic kidney disease, or unspecified chronic kidney disease; I50.9 Heart failure, unspecified; N18.9 Chronic kidney disease, unspecified; J44.9 Chronic obstructive pulmonary disease, unspecified; E78.00 Pure hypercholesterolemia, unspecified; F17.210 Nicotine dependence, cigarettes, uncomplicated; Z20.822 Contact with and (suspected) exposure to COVID-19; Z79.02 Long term (current) use of antithrombotics/antiplatelets; Z79.4 Long term (current) use of insulin; Z79.899 Other long term (current) drug therapy
CPT/HCPCS: 0240U; 36415; 71045; 80053; 81001; 83605; 83735; 84484; 85025; 93005; 96361; 96374; 99285; A9270; J1815; J2270; J7030; J3490

== ENCOUNTER 2023-10-09 12:24 | Emergency (ER) | payer OTHER ==
[2023-10-09 12:50] VITALS: BP 106/71; PULSE 79
== END 2023-10-09 12:58 | disposition left against medical advice (07) ==
LOC: DL.ED 12:24
DX: Z53.21 Procedure and treatment not carried out due to patient leaving prior to being seen by health care provider (principal)

== ENCOUNTER 2024-02-12 11:34 | Emergency (ER) | payer SELFPAY ==
[2024-02-12] MEDS: HYDROmorphone 0.5 MG/0.5 ML Syringe IVPUSH ONE (12:23)
[2024-02-12] MEDS: Sodium Chloride 0.9% 1,000 ML IV ONE ×2 (12:23→14:26)
[2024-02-12 12:24] LABS: BASOPHILS PERCENT AUTO 0.1 % (0.0-1.0); EOSINOPHILS PERCENT AUTO 0.1 % (1.0-3.0); HEMATOCRIT 43.4 % (40.0-54.0); HEMOGLOBIN 14.7 g/dL (14.0-18.0); LYMPHOCYTES PERCENT AUTO 1.6 % (20.5-50.1); MEAN CORPUSCULAR HEMOGLOBIN 30.2 pg (27.0-34.0); MEAN CORPUSCULAR HGB CONC 33.9 g/dL (33.0-35.0); MEAN CORPUSCULAR VOLUME 89.3 fL (80-100); MONOCYTES PERCENT AUTO 1.6 % (2-8); NEUTROPHILS PERCENT AUTO 96.6 % (42.2-75.2); PLATELET COUNT,PLT 126 10^3/uL (150-450); RED BLOOD CELL COUNT 4.86 10^6/uL (4.6-6.2); WHITE BLOOD CELL COUNT,WBC 12.1 10^3/uL (5.0-10.0)
[2024-02-12] MEDS: Acetaminophen 325 MG Tab PO ONE (12:24)
[2024-02-12] MEDS: Sodium Chloride 0.9% 10 ML Syringe FLUSH PRN (12:24)
[2024-02-12] MEDS: Ondansetron 4 MG/2 ML SDV IVPUSH ONE (12:29)
[2024-02-12 12:48] LABS: ANION GAP 18.4 mEq/L (7-13); BILIRUBIN TOTAL 0.8 mg/dL (0.2-1.0); BUN/CREATININE RATIO 17.1 (No establ ref range); CALCIUM 8.7 mg/dL (8.5-10.1); CREATININE 1.75 mg/dL (0.70-1.30); EST CRCL DRUG DOSING (CG) 53.27 mL/min; POTASSIUM,K 4.4 mmol/L (3.5-5.1); PROTEIN TOTAL,TP 6.7 g/dL (6.4-8.2)
[2024-02-12 12:52] LABS: A/G RATIO 0.81
[2024-02-12 13:00] LABS: CORONAVIRUS COVID-19 NAA NEGATIVE (NEGATIVE); INFLUENZA A NAA NEGATIVE (NEGATIVE); INFLUENZA B NAA NEGATIVE (NEGATIVE); RESPIRATORY SYNCYTIAL VIR NAA NEGATIVE (NEGATIVE)
[2024-02-12] MEDS ORDERED: 50% Dextrose in Water 50 ML Syringe IVPUSH PRN (13:19)
[2024-02-12] MEDS ORDERED: Glucagon,Human Recombinant 1 MG Vial IM PRN (13:19)
[2024-02-12 13:34] LABS: HEMOGLOBIN A1C 12.9 % (<5.7)
[2024-02-12] MEDS: Insulin Regular, Human 100 Units/ML 3 ML Vial IV ONE (13:34)
[2024-02-12] MEDS: cefTRIAXone 1 GM Vial IVPUSH ONE (13:36)
[2024-02-12] MEDS: Ibuprofen 800 MG Tab PO ONE (13:49)
[2024-02-12 13:55] LABS: APPEARANCE,URINE CLEAR (CLEAR); BILIRUBIN,URINE NEGATIVE (NEGATIVE); COLOR,URINE YELLOW (YELLOW); GLUCOSE,URINE >=1000 (NEGATIVE); KETONES,URINE NEGATIVE (NEGATIVE); LEUKOCYTE ESTERASE,URINE NEGATIVE (NEGATIVE); NITRITE,URINE NEGATIVE (NEGATIVE); OCCULT BLOOD,URINE MODERATE (NEGATIVE); PH,URINE 5.5 (5.0-9.0); PROTEIN,URINE 100 (NEGATIVE); UROBILINOGEN,URINE 0.2 mg/dL (0.2-1.0)
[2024-02-12 14:07] LABS: BACTERIA,URINE FEW /HPF (0-FEW/HPF); EPITHELIAL CELLS,URINE FEW /HPF (NOT SEEN)
[2024-02-12 14:34] VITALS: BP 109/57; PULSE 90
== END 2024-02-12 15:05 ==
LOC: DL.ED 11:34
DX: A41.9 Sepsis, unspecified organism (principal); E11.621 Type 2 diabetes mellitus with foot ulcer; L03.115 Cellulitis of right lower limb; R79.89 Other specified abnormal findings of blood chemistry; I10 Essential (primary) hypertension; Z95.0 Presence of cardiac pacemaker; Z79.4 Long term (current) use of insulin; Z79.899 Other long term (current) drug therapy
CPT/HCPCS: 0241U; 36415; 71045; 73620-RT; 80053; 81001; 82947; 83036; 83605; 83690; 84484; 85025; 87040; 87081; 87430; 93005; 93010; 96361; 96365; 96375; 99284-25; 99285; A9270-GY; J0696; J1170; J1815-GY; J2405; J3370; J3490; J7030; J7050